=== PATIENT | female | born 1950 | race Caucasian/White ===

== ENCOUNTER 2016-12-19 11:57 | Emergency (ER) | payer OTHER ==
[2016-12-19] MEDS ORDERED: OXYCODONE-ACETAMINOPHEN 5-325 MG TABLET PO ONE (12:13)
--- NOTE | 2016-12-19 12:46 | ER Document Report ---
HPI - HPI Patient complains to provider of: ankle injury Onset: Just prior to arrival Onset/Duration: Sudden Quality of pain: Sharp Pain Level: 5 Context: Patient was stepping off of her porch and rolled her left ankle. Patient complains of lateral ankle pain, swelling and difficulty with ambulation. Associated Symptoms: Other Exacerbated by: Standing, Movement, Walking Relieved by: Denies Similar symptoms previously: No Recently seen / treated by doctor: No - ROS ROS below otherwise negative: Yes Systems Reviewed and Negative: Yes All other systems reviewed and negative - CONSTITUTIONAL Constitutional: DENIES: Fever, Chills - NEURO Neurology: DENIES: Weakness - GASTROINTESTINAL Gastrointestinal: DENIES: Nausea - REPRODUCTIVE Reproductive: DENIES: : - MUSCULOSKELETAL Musculoskeletal: REPORTS: Extremity pain, Swelling - DERM Skin Color: Normal Past Medical History - General Information source: Patient - Social History Smoking Status: Never Smoker Chew tobacco use (# tins/day): No Frequency of alcohol use: None Drug Abuse: None Occupation: none Lives with: Spouse/Significant other Family History: CAD Patient has suicidal ideation: No Patient has homicidal ideation: No - Past Medical History Cardiac Medical History: Reports: Hx Hypercholesterolemia Neurological Medical History: Reports: Hx Migraine Renal/ Medical History: Denies: Hx Peritoneal Dialysis GI Medical History: Reports: Hx Gastroesophageal Reflux Disease Psychiatric Medical History: Reports: Hx Anxiety, Hx Depression Past Surgical History: Reports: Hx Hysterectomy, Hx Orthopedic Surgery - R knee - Immunizations Immunizations up to date: No Hx Diphtheria, Pertussis, Tetanus Vaccination: - unknown Vertical Provider Document - CONSTITUTIONAL Agree With Documented VS: Yes Exam Limitations: No Limitations General Appearance: WD/WN, No Apparent Distress - INFECTION CONTROL TRAVEL OUTSIDE OF THE [place] IN LAST 30 DAYS: No - HEENT HEENT: Atraumatic, Normocephalic - NECK Neck: Normal Inspection - RESPIRATORY Respiratory: Breath Sounds Normal, No Respiratory Distress O2 Sat by Pulse Oximetry: 97 - CARDIOVASCULAR Cardiovascular: Regular Rate, Regular Rhythm Pulses: Normal: Dorsalis pedis - MUSCULOSKELETAL/EXTREMETIES Musculoskeletal/Extremeties: MAEW, Tender - Left ankle tenderness over lateral malleolar area with 1+ edema, Edema, Eccymosis - NEURO Level of Consciousness: Awake, Alert, Appropriate Motor/Sensory: No Motor Deficit - DERM Integumentary: Warm, Dry Course - Vital Signs Vital signs: Temp Pulse Resp BP Pulse Ox 98.4 F 96 16 116/93 H 97 12/19/16 11:59 12/19/16 11:59 12/19/16 11:59 12/19/16 11:59 12/19/16 11:59 - Diagnostic Test Radiology reviewed: Pending, Image reviewed Procedures - Immobilization Left Ankle Pre-Proc Neuro Vasc Exam: Normal Immobilizer type: Posterior ankle Performed by: PCT Post-Proc Neuro Vasc Exam: Normal Alignment checked and good: Yes Discharge - Discharge Clinical Impression: Fracture of distal fibula Qualifiers: Encounter type: initial encounter Fracture type: closed Fracture morphology: unspecified fracture morphology Laterality: left Qualified Code(s): S82.832A - Other fracture of upper and lower end of left fibula, initial encounter for closed fracture Condition: Stable Disposition: HOME, SELF-CARE Instructions: Ice & Elevation ([facility]), Oral Narcotic Medication ([facility]), Use of Crutches ([facility]), Fracture of Distal Fibula ([facility]) Additional Instructions: Return immediately for any new or worsening symptoms Followup with your orthopedic care provider, call Wednesday to make a followup appointment Prescriptions: Oxycodone HCl/Acetaminophen [Percocet 5-325 mg Tablet] 1 tab PO ASDIR PRN #15 tablet PRN Reason: Referrals: DION VELEZ PA-C [Primary Care Provider] - Follow up as needed GUERO PRABHAKAR MD [ACTIVE STAFF] - 12/21/16
--- NOTE | 2016-12-19 13:20 | RADIOLOGY REPORT (SQ) ---
EXAM DESCRIPTION: ANKLE LEFT COMPLETE COMPLETED DATE/TIME: 12/19/2016 12:55 pm REASON FOR STUDY: rolled ankle, lateral ankle pain COMPARISON: None. NUMBER OF VIEWS: Three views. TECHNIQUE: AP, lateral, and oblique radiographic images acquired of the left ankle. LIMITATIONS: None. FINDINGS: MINERALIZATION: Normal. BONES: A transverse linear lucency is identified at the level of the distal fibula consistent with a nondisplaced fracture line. No other evidence for fracture is seen. JOINTS: No effusions. SOFT TISSUES: There is associated soft tissue swelling. OTHER: No other significant finding. IMPRESSION: Transverse fracture of the distal fibula. No other evidence for fracture is seen. Ther e is associated soft tissue swelling. TECHNICAL DOCUMENTATION: JOB ID: [id number] [employer]- All Rights Reserved
[2016-12-19 13:36] VITALS: BP 108/72
== END 2016-12-19 13:36 | disposition home or self-care (01) ==
LOC: ER 11:57
PROC: 2W3QX1Z Immobilization of Right Lower Leg using Splint (ICD-10-PCS; principal; 2016-12-19)
DX: S82.832A Other fracture of upper and lower end of left fibula, initial encounter for closed fracture (principal); X50.0XXA Overexertion from strenuous movement or load, initial encounter
CPT/HCPCS: 99283

== ENCOUNTER 2017-05-14 09:02 | Emergency (ER) | payer MEDICARE, OTHER ==
--- NOTE | 2017-05-14 09:47 | ER Document Report ---
ED Medical Screen (RME) - General Chief Complaint: General Weakness Stated Complaint: NAUSEA,WEAKNESS Mode of Arrival: Ambulatory Information source: Patient Notes: 67 year old female with history of UTIs, hyperlipidemia, and GERD presents to the ED complaining of nausea which is exacerbated with eating and generalized malaise that started 1 week ago. Patient is additionally complaining of burning with urination. Patient denies chest pain, abdominal discomfort, cough, congestion, vomiting, diarrhea, or any black or tarry stool. Patient has been told that she has a 'borderline thyroid'. Patient has an appointment with her primary care provider on Wednesday. TRAVEL OUTSIDE OF THE [place] IN LAST 30 DAYS: No - HPI Patient complains to provider of: Nausea and generalized malaise Onset: Other - 1 week ago Onset/Duration: Sudden Associated Symptoms: Other - see notes above - Related Data Smoking: Non-smoker Allergies/Adverse Reactions: No Known Allergies Allergy (Verified 05/14/17 09:04) Past Medical History - General Information source: Patient - Social History Cigarette use (# per day): No Frequency of alcohol use: Rare Drug Abuse: None - Past Medical History Cardiac Medical History: Reports: Hx Hypercholesterolemia Neurological Medical History: Reports: Hx Migraine Renal/ Medical History: Denies: Hx Peritoneal Dialysis GI Medical History: Reports: Hx Gastroesophageal Reflux Disease Psychiatric Medical History: Reports: Hx Anxiety, Hx Depression Past Surgical History: Reports: Hx Hysterectomy, Hx Orthopedic Surgery - R knee - Immunizations Immunizations up to date: No Hx Diphtheria, Pertussis, Tetanus Vaccination: - unknown Review of Systems - Review of Systems Constitutional: See HPI, Malaise EENT: No symptoms reported Cardiovascular: No symptoms reported. denies: Chest pain Respiratory: No symptoms reported. denies: Cough Gastrointestinal: See HPI, Nausea. denies: Abdominal pain, Diarrhea, Vomiting Genitourinary: See HPI, Burning Female Genitourinary: No symptoms reported Musculoskeletal: No symptoms reported Skin: No symptoms reported Hematologic/Lymphatic: No symptoms reported Neurological/Psychological: No symptoms reported -: Yes All other systems reviewed and negative Physical Exam - Vital signs Vitals: Temp Pulse Resp BP Pulse Ox 98.0 F 68 18 107/57 L 97 05/14/17 09:07 05/14/17 09:07 05/14/17 09:07 05/14/17 09:07 05/14/17 09:07 - General General appearance: Alert In distress: None - Respiratory Respiratory status: No respiratory distress Breath sounds: Normal - Cardiovascular Rhythm: Regular Heart sounds: Normal auscultation - Psychological Associated symptoms: Normal affect, Normal mood Course - Vital Signs Vital signs: Temp Pulse Resp BP Pulse Ox 98.0 F 68 18 107/57 L 97 05/14/17 09:07 05/14/17 09:07 05/14/17 09:07 05/14/17 09:07 05/14/17 09:07 Scribe Documentation - Scribe Written by Colton:: Colton Shoemaker, 05/14/2017 0950 acting as scribe for :: Ren
[2017-05-14 10:08] LABS: ABSOLUTE BASOPHILS # (AUTO) 0.1 10^3/uL (0.0-0.2); ABSOLUTE EOSINOPHILS # (AUTO) 0.1 10^3/uL (0.0-0.6); ABSOLUTE LYMPHOCYTES (AUTO) 1.5 10^3/uL (0.5-4.7); ABSOLUTE MONOCYTES (AUTO) 0.6 10^3/uL (0.1-1.4); HEMATOCRIT 35.7 % (36.0-47.0); HEMOGLOBIN 11.9 g/dL (12.0-15.5); LYMPHOCYTES % (AUTO) 24.4 % (13-45); MEAN CORPUSCULAR HEMOGLOBIN 27.8 pg (27.0-33.4); MEAN CORPUSCULAR HGB CONC 33.3 g/dL (32.0-36.0); MEAN CORPUSCULAR VOLUME 84 fl (80-97); MONOCYTES % (AUTO) 9.9 % (3-13); RED BLOOD COUNT 4.28 10^6/uL (3.72-5.28); RED CELL DISTRIBUTION WIDTH 14.1 % (11.5-14.0); SEGMENTED NEUTROPHILS % (AUTO) 63.7 % (42-78); WHITE BLOOD COUNT 6.3 10^3/uL (4.0-10.5)
[2017-05-14 10:11] LABS: APPEARANCE,URINE SLIGHTLY-CLOUDY; BILIRUBIN,URINE NEGATIVE (NEGATIVE); GLUCOSE, URINE NEGATIVE (NEGATIVE); KETONES,URINE NEGATIVE (NEGATIVE); LEUKOCYTE ESTERASE,URINE TRACE (NEGATIVE); NITRITE,URINE NEGATIVE (NEGATIVE); PROTEIN,URINE NEGATIVE (NEGATIVE); URINE SPECIFIC GRAVITY 1.016; UROBILINOGEN,URINE NEGATIVE mg/dL (<2.0)
[2017-05-14 10:15] LABS: BACTERIA,URINE TRACE /HPF; WBC,URINE 0-1 /HPF
[2017-05-14 10:28] LABS: ALANINE AMINOTRANSFERASE 26 U/L (9-52); ALBUMIN 3.6 g/dL (3.5-5.0); ALKALINE PHOSPHATASE 56 U/L (38-126); ANION GAP 9 (5-19); ASPARTATE AMINO TRANSFERASE 22 U/L (14-36); BILIRUBIN,DIRECT 0.3 mg/dL (0.0-0.4); BILIRUBIN,TOTAL 0.7 mg/dL (0.2-1.3); BLOOD UREA NITROGEN 6 mg/dL (7-20); CALCIUM 9.3 mg/dL (8.4-10.2); CARBON DIOXIDE 31 mmol/L (22-30); CHLORIDE 104 mmol/L (98-107); CREATININE RESULT 0.79 mg/dL (0.52-1.25); GLUCOSE 111 mg/dL (75-110); MAGNESIUM 1.6 mg/dL (1.6-2.3); SODIUM 144.3 mmol/L (137-145)
[2017-05-14] MEDS ORDERED: NORMAL SALINE 500 ML IV ONE (12:50)
[2017-05-14] MEDS ORDERED: MECLIZINE HCL 25 MG TABLET PO ONE (12:50)
[2017-05-14] MEDS ORDERED: NORMAL SALINE 1000 ML 1,000 ML IV ONE (12:53)
--- NOTE | 2017-05-14 13:17 | EKG REPORT ---
SEVERITY:- BORDERLINE ECG - SINUS RHYTHM BORDERLINE PROLONGED QT INTERVAL NONSPECIFIC ST-T CHANGES- INFERIOR LEADS : Confirmed by: Sam Maynard MD 14-May-2017 13:15:51
[2017-05-14] MEDS ORDERED: FLUCONAZOLE 100 MG TABLET PO ONE (13:19)
--- NOTE | 2017-05-14 13:21 | RADIOLOGY REPORT (SQ) ---
EXAM DESCRIPTION: CT HEAD WITHOUT COMPLETED DATE/TIME: 05/14/2017 1:10 pm REASON FOR STUDY: dizzy COMPARISON: MRI dated 07/23/2014. TECHNIQUE: Axial images acquired through the brain without intravenous contrast. Images reviewed wi th bone, brain and subdural windows. Images stored on PACS. All CT scanners at this facility use dose modulation, iterative reconstruction, and/or weight based d osing when appropriate to reduce radiation dose to as low as reasonably achievable (ALARA). [facility]: Dose Right [facility]: CareDose [facility]: Dose Right [facility]: Teradose 4D [facility]: [employer] RADIATION DOSE: mGy. LIMITATIONS: None. FINDINGS: VENTRICLES: Normal size and contour. CEREBRUM: No masses. No hemorrhage. No midline shift. No evidence for acute infarction. Normal gra y/white matter differentiation. No areas of low density in the white matter. CEREBELLUM: No masses. No hemorrhage. No alteration of density. No evidence for acute infarction. EXTRAAXIAL SPACES: No fluid collections. No masses. ORBITS AND GLOBE: No intra- or extraconal masses. Normal contour of globe without masses. CALVARIUM: No fracture. PARANASAL SINUSES: No fluid or mucosal thickening. SOFT TISSUES: No mass or hematoma. OTHER: No other significant finding. IMPRESSION: NORMAL BRAIN CT WITHOUT CONTRAST. EVIDENCE OF ACUTE STROKE: NO. COMMENT: Quality ID # [id number]: Final reports with documentation of one or more dose reduction techniques (e.g., Automated exposure control, adjustment of the mA and/or kV according to patient size, use of iterative reconstruction technique) TECHNICAL DOCUMENTATION: JOB ID: [id number] [employer]- All Rights Reserved
--- NOTE | 2017-05-14 14:19 | ER Document Report ---
ED General - General Chief Complaint: General Weakness Stated Complaint: NAUSEA,WEAKNESS Time Seen by Provider: 05/14/17 09:21 Mode of Arrival: Ambulatory Information source: Patient, Relative Notes: Patient is a 67 year old white female who comes to ER with her complaining of generalized weakness and dizziness. She states this has been going on for a week and getting worse.She is currently being treated for a UTI by her PCP Dr Hampton. Dillonwe also states she has been diagnosed with " [place] Hypothyroidism ". She continues to say that she becomes very dizzy going from Laying down to sitting up to standing. She says that when she changes positions the room spins and she becomes nauseated. She currently denies any recent URI symptoms. She denies chest pain or shortness of breath. Her interjects that she has not felt well since starting phenteramine for weight loss. She has been on med for about 2 months. TRAVEL OUTSIDE OF THE [place] IN LAST 30 DAYS: No - HPI Patient complains to provider of: Lightheadedness and dizziness. Weakness and fatigue. Onset: Other - One week with past 2 days worse. Severity: Moderate Pain Level: 3 Associated symptoms: Nausea, Weakness. denies: None, Allergy/hay fever, Body/ muscle aches, Chest pain, Chills, Nonproductive cough, Productive cough, Diarrhea, Drooling, Earache, Fever, Headache, Hoarseness, Hurts to breath, Leg swelling, Vomiting, Rhinnorhea, Sinus pain/drainage, Shortness of breath, Slow to respond, Sore throat, Sweating, Other Exacerbated by: Movement, Other - position Relieved by: Remaining still Similar symptoms previously: No Recently seen / treated by doctor: Yes - Related Data Allergies/Adverse Reactions: No Known Allergies Allergy (Verified 05/14/17 09:04) Home Medications: Current Home Medications Atorvastatin Calcium [Lipitor 10 mg Tablet] 1 tab PO DAILY 05/14/17 [History] Paroxetine HCl [Paxil] 1 tab PO DAILY 05/14/17 [History] Past Medical History - General Information source: Patient, Relative - Social History Smoking Status: Never Smoker Cigarette use (# per day): No Chew tobacco use (# tins/day): No Smoking Education Provided: No Frequency of alcohol use: Rare Drug Abuse: None Lives with: Family Family History: Reviewed & Not Pertinent, CAD Patient has suicidal ideation: No Patient has homicidal ideation: No - Past Medical History Cardiac Medical History: Reports: Hx Hypercholesterolemia Neurological Medical History: Reports: Hx Migraine Renal/ Medical History: Denies: Hx Peritoneal Dialysis GI Medical History: Reports: Hx Gastroesophageal Reflux Disease Psychiatric Medical History: Reports: Hx Anxiety, Hx Depression Past Surgical History: Reports: Hx Hysterectomy, Hx Orthopedic Surgery - R knee - Immunizations Immunizations up to date: No Hx Diphtheria, Pertussis, Tetanus Vaccination: - unknown Review of Systems - Review of Systems Constitutional: Malaise, Weakness EENT: No symptoms reported Cardiovascular: No symptoms reported Respiratory: No symptoms reported Gastrointestinal: Nausea Genitourinary: No symptoms reported Female Genitourinary: No symptoms reported Musculoskeletal: No symptoms reported Skin: No symptoms reported Hematologic/Lymphatic: No symptoms reported Neurological/Psychological: Weakness -: Yes All other systems reviewed and negative Physical Exam - Vital signs Vitals: Temp Pulse Resp BP Pulse Ox 98.0 F 68 18 107/57 L 97 05/14/17 09:07 05/14/17 09:07 05/14/17 09:07 05/14/17 09:07 05/14/17 09:07 Interpretation: Hypotensive - General General appearance: Appears well - HEENT Head: Normocephalic, Atraumatic Eyes: Other - Patient was layed supine on cot. Laid head in hands and I rotated head left right and up 3 times each time watching the eyes. Patient on second manover showed moderate horizontal faciculation bilaterally. When sat up after 3rd rotatiion patient tilted to the right and became very nauseated. Conjunctiva: Normal Extraocular movements intact: Yes Pupils: PERRL Fundascopic: Normal Visual maza normal: Yes Ears: Normal External canal: Normal Tympanic membrane: Normal Sinus: Normal Nasal: Normal Mouth/Lips: Normal Mucous membranes: Moist Pharynx: Normal Neck: Normal - Respiratory Respiratory status: No respiratory distress Chest status: Nontender Breath sounds: Normal. No: Decreased air movement, Nonproductive cough, Productive cough, Rales, Rhonchi, Stridor, Wheezing, Other Chest palpation: Normal - Cardiovascular Rhythm: Regular Heart sounds: Normal auscultation Murmur: No - Abdominal Inspection: Normal Distension: No distension Bowel sounds: Normal Tenderness: Nontender Organomegaly: No organomegaly - Neurological Neuro grossly intact: Yes Cognition: Normal Orientation: AAOx4 [place] Coma Scale Eye Opening: Spontaneous [place] Coma Scale Verbal: Oriented [place] Coma Scale Motor: Obeys Commands [place] Coma Scale Total: 15 Speech: Normal Cranial nerves: Normal Cerebellar coordination: Normal, Other - Neuro check normal Additional motor exam normals: Equal spine surgeon Sensory: Normal - Skin Skin Temperature: Warm Skin Moisture: Dry Skin Color: Normal, [place] Course - Vital Signs Vital signs: Temp Pulse Resp BP Pulse Ox 98.0 F 71 16 123/67 100 05/14/17 09:07 05/14/17 14:39 05/14/17 14:39 05/14/17 14:39 05/14/17 14:39 - Laboratory Result Diagrams: 05/14/17 09:45 05/14/17 09:45 Laboratory results interpreted by me: 05/14/17 05/14/17 05/14/17 09:45 09:45 09:45 Hgb 11.9 L Hct 35.7 L RDW 14.1 H Carbon Dioxide 31 H BUN 6 L Glucose 111 H Total Protein 6.0 L TSH 5.52 H Ur Leukocyte Esterase 05/14/17 09:45 Hgb Hct RDW Carbon Dioxide BUN Glucose Total Protein TSH Ur Leukocyte Esterase TRACE H - Diagnostic Test Radiology reviewed: Reports reviewed - Normal CT head - Transfer of Care Notes: 05/14/17 21:09 Patient received a liter of fluid and responded well. Orthostatic BP normal. and patient requestion DC and given the findings Vertigo is primary diagnosis. She also has slight elevation in TSH. Will treat with Meclzine and small steroid taper. For inner ear complaints. Patient will follow up with Dr Hampton first of the week. On DC she appeared improved. Discharge - Discharge Clinical Impression: Vertigo Hypothyroid Qualifiers: Hypothyroidism type: unspecified Qualified Code(s): E03.9 - Hypothyroidism, unspecified Condition: Good Disposition: HOME, SELF-CARE Instructions: Hypothyroidism ([facility]), Vertigo ([facility]) Additional Instructions: Home and rest. As we discussed treating you for the vertigo symptoms with the Antivert/meclizine. I am also placing you on a little bit of a steroid for a few days to see if this helps alleviate that in her ear count of problem. Also placing you on an antihistamine that I hope will help dry everything up. Continue with your current medications and follow-up with your primary the first of the week. Should you have any concerns or problems return to ER for a recheck. Currently as we discussed her thyroid numbers are slightly out of control you need further workup with this and more in-depth studies that we do not do out of the emergency room. At this time we will not start treating this given the fact that you need further workup. This can be 1 of the things contributing to your fatigue. Your urine is clean so do not take anymore antibiotics. I have given you a Diflucan pill in-house and that should take care of your yeast infection from use of the antibiotics. Again she had any concerns or problems return to ER for recheck. Prescriptions: Meclizine HCl 25 mg PO TID #30 tablet Methylprednisolone [Medrol Dosepack (4 mg/Tab) 21 Tab/Dosepak] 4 mg PO ASDIR PRN #21 tab.ds.pk PRN Reason: Referrals: COLEMAN HAMPTON MD [ACTIVE STAFF] - Follow up as needed
[2017-05-14 14:46] VITALS: BP 123/67
== END 2017-05-14 14:46 | disposition home or self-care (01) ==
LOC: ER 09:02
DX: R42 Dizziness and giddiness (principal); R53.1 Weakness; R11.0 Nausea; E03.9 Hypothyroidism, unspecified
CPT/HCPCS: 93005; 99285; 96360; 36415; 83735; 84443; 85025; 80053; 81001; 84484; 70450; 93010; A9270 ×2; J7030

== ENCOUNTER → 2017-08-19 | Outpatient (CLI) | payer MEDICARE, OTHER ==
--- NOTE | 2017-08-19 14:31 | RADIOLOGY REPORT (SQ) ---
EXAM DESCRIPTION: CT ABD/PELVIS WITH IV ORAL COMPLETED DATE/TIME: 08/19/2017 1:40 pm REASON FOR STUDY: EPIGATRIC PAIN R10.13 EPIGASTRIC PAIN COMPARISON: CT dated 12/26/2015. MRI dated 02/26/2016. TECHNIQUE: CT scan of the abdomen and pelvis performed using helical scanning technique with dynamic intravenous contrast injection. No oral contrast. Images reviewed with lung, soft tissue, and bone windows. Reconstructed coronal and sagittal MPR images reviewed. Delayed images for evaluation of the urinary system also acquired. All images stored on PACS. All CT scanners at this facility use dose modulation, iterative reconstruction, and/or weight based d osing when appropriate to reduce radiation dose to as low as reasonably achievable (ALARA). [facility]: Dose Right [facility]: CareDose [facility]: Dose Right [facility]: Teradose 4D [facility]: [employer] CONTRAST TYPE AND DOSE: contrast/concentration: Isovue 370.00 mg/ml; Total Contrast Delivered: 80.0 ml; Total Saline Delivered: 68.0 ml RENAL FUNCTION: Creatinine 0.8. RADIATION DOSE: CT Rad equipment meets quality standard of care and radiation dose reduction techniq ues were employed. CTDIvol: 6.4 - 7.5 mGy. DLP: 732 mGy-cm.. LIMITATIONS: None. FINDINGS: LOWER CHEST: No significant findings. No nodules or infiltrates. LIVER: Normal size. Diffuse fatty infiltration. No masses. No dilated ducts. SPLEEN: Normal size. No focal lesions. PANCREAS: Small fatty lesion in the body, unchanged. No significant calcifications. No adjacent infl ammation or peripancreatic fluid collections. Pancreatic duct not dilated. GALLBLADDER: No identified stones by CT criteria. No inflammatory changes to suggest cholecystitis. ADRENAL GLANDS: No significant masses or asymmetry. RIGHT KIDNEY AND URETER: No solid masses. No significant calcifications. No hydronephrosis or hyd roureter. LEFT KIDNEY AND URETER: No solid masses. No significant calcifications. No hydronephrosis or hydr oureter. AORTA AND VESSELS: No aneurysm. No dissection. Renal arteries, SMA, celiac without stenosis. RETROPERITONEUM: No retroperitoneal adenopathy, hemorrhage or masses. BOWEL AND PERITONEAL CAVITY: No masses or inflammatory changes. Stable duodenal diverticulum. No fr ee fluid or peritoneal masses. APPENDIX: Normal. PELVIS: No mass. No free fluid. Normal bladder. ABDOMINAL WALL: No masses. No hernias. BONES: No significant or acute findings. OTHER: No other significant finding. IMPRESSION: 1. STABLE SMALL FATTY LESION IN THE PANCREAS, MOST LIKELY A LIPOMA. 2. STABLE DUODENAL DIVERTICULUM. 3. DIFFUSE FATTY INFILTRATION OF THE LIVER. 4. NO OTHER SIGNIFICANT OR ACUTE FINDING IN THE ABDOMEN OR PELVIS ON CT SCAN WITH IV CONTRAST. TECHNICAL DOCUMENTATION: JOB ID: [id number] Quality ID # [id number]: Final reports with documentation of one or more dose reduction techniques (e.g., Au tomated exposure control, adjustment of the mA and/or kV according to patient size, use of iterative reconstruction technique) 2010 [employer]- All Rights Reserved Reading location - IP/workstation name: [email or web address]
== END ==
LOC: RAD 12:49
PROVIDERS: ATTEND Internal Medicine Gastroenterology
DX: R10.13 Epigastric pain (principal); K57.10 Diverticulosis of small intestine without perforation or abscess without bleeding; K76.0 Fatty (change of) liver, not elsewhere classified
CPT/HCPCS: 74177; 82565

== ENCOUNTER → 2017-12-07 | Outpatient (CLI) | payer MEDICARE, OTHER ==
--- NOTE | 2017-12-07 13:58 | RADIOLOGY REPORT (SQ) ---
EXAM DESCRIPTION: HAND RIGHT 3 VIEWS COMPLETED DATE/TIME: 12/07/2017 11:24 am REASON FOR STUDY: PAIN IN RIGHT HAND PAIN IN RIGHT HAND chronic pain no injury. COMPARISON: None. EXAM PARAMETERS: NUMBER OF VIEWS: Three views. TECHNIQUE: AP, lateral and oblique radiographic images acquired of the right hand. LIMITATIONS: None. FINDINGS: MINERALIZATION: Normal. BONES: No acute fracture or dislocation. No worrisome bone lesions. No significant osteophytes. JOINTS: Mild periarticular osteopenia. SOFT TISSUES: No swelling. No calcifications. OTHER: No other significant finding. IMPRESSION: Mild periarticular osteopenia. No erosive changes. TECHNICAL DOCUMENTATION: JOB ID: [id number] [employer]- All Rights Reserved Reading location - IP/workstation name: [email or web address]
== END ==
LOC: RAD 11:02
PROVIDERS: ATTEND Nurse Practitioner Primary Care
DX: G89.29 Other chronic pain (principal); M79.641 Pain in right hand

== ENCOUNTER → 2018-03-12 | Outpatient (CLI) | payer MEDICARE, OTHER ==
--- NOTE | 2018-03-12 10:37 | RADIOLOGY REPORT (SQ) ---
EXAM DESCRIPTION: MRI PELVIS WITHOUT COMPLETED DATE/TIME: 03/12/2018 10:09 am REASON FOR STUDY: ABNORMAL XRAY SUSPICION FOR SERONEGATIVE SPONDYLOARTHROPATHY M54.5 LOW BACK PAIN COMPARISON: None. TECHNIQUE: Multiplanar imaging of the SI joints to include fat and fluid sensitive sequences. LIMITATIONS: None. FINDINGS: BONE MARROW: Symmetric appearance of the bilateral sacroiliac joints without suggestion of significant marrow edema, ankylosis or erosions. No bulky osteophytes. No fluid in the joints. Co rrelation with CT study from August reveals some minimal sclerosis and narrowing along the SI joints. SOFT TISSUES: No evidence of mass or edema or drainable fluid collection. OTHER: No other significant finding. IMPRESSION: MRI appearance of the SI joints is relatively unremarkable. TECHNICAL DOCUMENTATION: JOB ID: [id number] [employer]- All Rights Reserved Reading location - IP/workstation name: [email or web address]
== END ==
LOC: RAD 08:51
PROVIDERS: ATTEND Nurse Practitioner Family
DX: M54.5 Low back pain (principal)
CPT/HCPCS: 72195

== ENCOUNTER → 2018-09-06 | Day surgery (SDC) | payer MEDICARE, OTHER ==
[~2018-09-06] MED LIST: BUPIVACAINE HCL 0.5 % INJ/PF 30 ML SDV ONE; LIDOCAINE 1% INJ-PF (10 MG/ML) 30 ML SDV ONE; LIDOCAINE 2% INJ (20 MG/ML) 20 ML MDV ONE; METHYLPREDNISOLONE ACETATE INJ 40 MG/1 ML ML ONE
--- NOTE | 2018-09-06 13:42 | Operative Report ---
PREOPERATIVE DIAGNOSIS: Lumbar Spondylosis POSTOPERATIVE DIAGNOSIS: Lumbar Spondylosis PROCEDURE: Radiofrequency Ablation of medial branches - RT L3 L4 / LT L3 L4 DATE OF PROCEDURE: 09/06/2018 ANESTHESIA: Local COMPLICATIONS: None CONSENT: A full description of the procedure was provided including benefits as well as possible complications. All questions were answered and informed consent was given and signed. ASA guidelines for fasting were verified prior to sedation. PROCEDURE IN DETAIL The patient was brought into the fluoroscopy suite and positioned into the prone position on the fluoroscopy table and allowed to adjust to a position of comfort. A grounding pad was placed on the left thigh. The lumbar region was widely prepped with a chloraprep solution, allowed to air dry and draped in standard sterile surgical fashion. Local anesthesia was provided by 1 mL of 1 % again delivered with a 25 g needle. A 17g 75mm radiofrequency introducer needle was placed to the planned anatomic targets guided with intermittent fluoroscopy with a perpendicular approach to terminally place at the junction of the superior articular process and the transverse process of the right L4 and right L5. The stylets were removed and radiofrequency probes with a 4mm active tip were then inserted. Needle tip position of the probes was verified in the AP, oblique, and lateral views. At each site, the medial branch nerve was stimulated at 2 Hz to a maximum 1-2 volts determined to finalize safe needle and electrode placement. The patient was awake and responsive during this portion of the procedure. Each target was anesthetized with 1-2 mL of 2 % lidocaine for anesthesia for lesioning and then each target was lesioned at 80 degrees Celsius for 2 minutes and 30 seconds. Tissue impedences were noted to be between 250 and 500 Ohms. The procedure was then performed in the exact same manner at the same levels on the left. Once completed, a solution of sensorcain and depomedrol was instilled at all 4 sites. Electrodes and needles were then removed and bandages placed over the needle placement sites, the patient then returned to the supine position on a stretcher and transported to the recovery room without hemodynamic, neurologic, or allergic reactions. Fluoroscopic images were printed for hard copy recording and digitally archived. POST PROCEDURE EVALUATION: The patient was comfortable in the recovery room. The patient is aware that pain may worsen before remitting and 4 6 weeks may be required prior to the onset of pain relief. IMPRESSION: 1. Technically successful bilateral L3 L4 medial branch radiofrequency neurotomy for denervation on the bilateral without complication. 2. RTC in 6 weeks. 3. Estimated Blood Loss: 3 cc 4. Fluoroscopy time: See nursing record seconds
== END ==
LOC: RAD 12:36
PROVIDERS: ATTEND Student in an Organized Health Care Education/Training Program
DX: M47.816 Spondylosis without myelopathy or radiculopathy, lumbar region (principal)
CPT/HCPCS: 64635; 64636; J3490 ×3; J1020

== ENCOUNTER 2019-02-28 10:48 | Observation (INO) | payer MEDICARE, OTHER ==
[2019-02-28] MEDS ORDERED: ASPIRIN 81 MG TABLET, CHEWABLE PO ONE (11:36)
[2019-02-28 11:47] LABS: ABSOLUTE BASOPHILS # (AUTO) 0.1 10^3/uL (0.0-0.2); ABSOLUTE EOSINOPHILS # (AUTO) 0.1 10^3/uL (0.0-0.6); ABSOLUTE MONOCYTES (AUTO) 0.6 10^3/uL (0.1-1.4); ABSOLUTE NEUT (AUTO) 3.1 10^3/uL (1.7-8.2); BASOPHILS % (AUTO) 2.2 % (0-2); EOSINOPHILS % (AUTO) 2.4 % (0-6); HEMATOCRIT 38.3 % (36.0-47.0); HEMOGLOBIN 12.6 g/dL (12.0-15.5); LYMPHOCYTES % (AUTO) 33.2 % (13-45); MEAN CORPUSCULAR HEMOGLOBIN 28.7 pg (27.0-33.4); MEAN CORPUSCULAR HGB CONC 32.8 g/dL (32.0-36.0); MEAN CORPUSCULAR VOLUME 88 fl (80-97); MONOCYTES % (AUTO) 9.3 % (3-13); PLATELET COUNT 205 10^3/uL (150-450); RED BLOOD COUNT 4.37 10^6/uL (3.72-5.28); RED CELL DISTRIBUTION WIDTH 15.7 % (11.5-14.0); SEGMENTED NEUTROPHILS % (AUTO) 52.9 % (42-78); TOTAL CELLS COUNTED % (AUTO) 100 %; WHITE BLOOD COUNT 5.9 10^3/uL (4.0-10.5)
[2019-02-28 12:07] LABS: ALBUMIN 4.1 g/dL (3.5-5.0); ALKALINE PHOSPHATASE 87 U/L (38-126); ANION GAP 7 (5-19); ASPARTATE AMINO TRANSFERASE 59 U/L (14-36); BILIRUBIN,DIRECT 0.1 mg/dL (0.0-0.4); BILIRUBIN,TOTAL 0.5 mg/dL (0.2-1.3); BLOOD UREA NITROGEN 11 mg/dL (7-20); CALCIUM 9.3 mg/dL (8.4-10.2); CARBON DIOXIDE 27 mmol/L (22-30); CHLORIDE 108 mmol/L (98-107); CREATINE KINASE 66 U/L (30-135); GLUCOSE 93 mg/dL (75-110); POTASSIUM 3.9 mmol/L (3.6-5.0); TOTAL PROTEIN 6.8 g/dL (6.3-8.2)
[2019-02-28 12:21] LABS: CREATINE KINASE MB 0.5 ng/mL (<4.55)
[2019-02-28 12:28] LABS: TROPONIN I 0.09 ng/mL
[2019-02-28 13:10] LABS: FREE T4 (FREE THYROXINE) 1.07 ng/dL (0.78-2.19)
--- NOTE | 2019-02-28 13:10 | RADIOLOGY REPORT (SQ) ---
EXAM DESCRIPTION: CHEST 2 VIEWS COMPLETED DATE/TIME: 02/28/2019 1:01 pm REASON FOR STUDY: chest pain COMPARISON: 07/10/2007 EXAM PARAMETERS: NUMBER OF VIEWS: two views TECHNIQUE: Digital Frontal and Lateral radiographic views of the chest acquired. RADIATION DOSE: NA LIMITATIONS: none FINDINGS: LUNGS AND PLEURA: No opacities, masses or pneumothorax. No pleural effusion. MEDIASTINUM AND HILAR STRUCTURES: No masses or contour abnormalities. HEART AND VASCULAR STRUCTURES: Heart normal size. No evidence for failure. BONES: No acute findings. HARDWARE: None in the chest. OTHER: No other significant finding. IMPRESSION: NO ACUTE RADIOGRAPHIC FINDING IN THE CHEST. TECHNICAL DOCUMENTATION: JOB ID: [id number] [employer]- All Rights Reserved Reading location - IP/workstation name: [email or web address]
[2019-02-28 13:24] LABS: THYROID STIMULATING HORMONE 1.53 uIU/mL (0.47-4.68)
--- NOTE | 2019-02-28 14:28 | EKG REPORT ---
SEVERITY:- ABNORMAL ECG - SINUS ARRHYTHMIA, RATE 55-77 LEFT VENTRICULAR HYPERTROPHY : Confirmed by: Sam Maynard MD 28-Feb-2019 14:27:45
[2019-02-28] MEDS ORDERED: REGADENOSON INJ 0.4 MG/5 ML DISP.SYRIN IV ONE (14:30)
--- NOTE | 2019-02-28 14:52 | ER Document Report ---
ED Cardiac - General Chief Complaint: Chest Pain Stated Complaint: DIZZINESS Time Seen by Provider: 02/28/19 11:53 Primary Care Provider: DION VELEZ PA-C [Primary Care Provider] - Follow up as needed Notes: 68-year-old female presents to the ER complaining of chest discomfort and a funny feeling all over. The patient stated she slurred her speech for a few minutes but that has resolved she felt tingly all over. She complains some mild chest discomfort that is went away she felt short of breath. Patient is not a very good historian and cannot really localize she does states she feels as if something is wrong. She was concerned she may have been having a stroke she denies any anxiety related issues. Stated the chest discomfort was just heaviness and then she had tingling all over. Think she did made it better or worse she is come to the ER to be evaluated denies fever chills cough or sore throat TRAVEL OUTSIDE OF THE [place] IN LAST 30 DAYS: No - Related Data Allergies/Adverse Reactions: No Known Allergies Allergy (Verified 02/28/19 10:54) Past Medical History - Social History Smoking Status: Unknown if Ever Smoked Family History: Reviewed & Not Pertinent, CAD Patient has suicidal ideation: No Patient has homicidal ideation: No - Past Medical History Cardiac Medical History: Reports: Hx Hypercholesterolemia Neurological Medical History: Reports: Hx Migraine Renal/ Medical History: Denies: Hx Peritoneal Dialysis GI Medical History: Reports: Hx Gastroesophageal Reflux Disease Psychiatric Medical History: Reports: Hx Anxiety, Hx Depression Past Surgical History: Reports: Hx Hysterectomy, Hx Orthopedic Surgery - R knee - Immunizations Immunizations up to date: No Hx Diphtheria, Pertussis, Tetanus Vaccination: - unknown Review of Systems - Review of Systems Constitutional: Diaphoresis. denies: Chills, Fever Cardiovascular: Chest pain, Palpitations, Dizziness, Lightheaded Genitourinary: denies: Burning -: Yes All other systems reviewed and negative Physical Exam - Vital signs Vitals: Temp Pulse Resp BP Pulse Ox 98.1 F 56 L 18 122/62 96 02/28/19 11:04 02/28/19 11:04 02/28/19 11:04 02/28/19 11:04 02/28/19 11:04 - Notes Notes: GENERAL_APPEARANCE: well_nourished, alert, cooperative, no_acute_distress, no_obvious_discomfort. VITALS: reviewed, see vital signs table. HEAD: no_swelling\tenderness on the head. EYES: PERRL, EOMI, conjunctiva_clear. NOSE: no_nasal_discharge. MOUTH: (-)decreased moisture. THROAT: no_tonsilar_inflammation, no_airway_obstruction. no_lymphadenopathy NECK: supple, no_neck_tenderness, (-)thyromegaly. BACK: no_back_tenderness. CHEST_WALL: no_chest_tenderness. LUNGS: no_wheezing, no_rales, no_rhonchi, (-)accessory muscle use, good air exchange bilateral. HEART: normal_rate, normal_rhythm, normal_S1, normal_S2, (-)S3, (-)S4, no_murmur, no_rub. ABDOMEN: normal_BS, soft, no_abd_tenderness, (-)guarding, (-)rebound, no_organo megaly, no_abd_masses. EXTREMITIES: good pulses in all_extremities, no_swelling\tenderness in the e xtremities, no_edema. SKIN: warm, dry, good_color, no_rash. MENTAL_STATUS: speech_clear, oriented_X_3, anxious_affect, responds_appropriately to questions. NEURO: Neg Motor or Sensory Deficits on exam, CN 2-12 intact, DTR 2+ symmetric x 4, No cerbellar signs Course - Re-evaluation Re-evalutation: 02/28/19 14:51 EKG is a sinus rhythm. There may be some early LVH noted chest x-ray is normal first troponin is still in the negative range but not completely 0. Repeated it and it is increased. His history is very strange we are getting a CT scan I doubt any kind of stroke initially thought this may have been anxiety related or due to electrolyte disturbance or thyroid her thyroid levels are normal. Her lecture lites are within acceptable limits. 02/28/19 15:38 Troponins have increased but are still under the threshold of negative. Patient's history is just so bizarre. She had the chest discomfort then that went away the shortness of breath dizziness lightheadedness and the numbness and tingling she may have had an arrhythmia it is difficult to tell all her electrolytes are normal there is no changes in potassium or magnesium. Her thyroid numbers are normal. I think is appropriate to continue trending her enzymes and keep her on telemetry to be sure that she did have a tachyarrhythmia or something that caused the strange global symptoms. I spoke with the hospitalist service who are in agreement. - Vital Signs Vital signs: Temp Pulse Resp BP Pulse Ox 98.1 F 56 L 18 122/62 99 02/28/19 11:04 02/28/19 11:04 02/28/19 11:04 02/28/19 11:04 02/28/19 11:36 - Laboratory Result Diagrams: 02/28/19 11:30 02/28/19 11:30 Laboratory results interpreted by me: 02/28/19 02/28/19 11:30 11:30 RDW 15.7 H Baso % (Auto) 2.2 H Chloride 108 H AST 59 H - Diagnostic Test Radiology reviewed: Reports reviewed Radiology results interpreted by me: 02/28/19 14:51 Chest X-Ray 02/28/19 00:00 IMPRESSION: NO ACUTE RADIOGRAPHIC FINDING IN THE CHEST. - EKG Interpretation by [facility] EKG shows normal: Sinus rhythm Rhythm: NSR Discharge - Discharge Clinical Impression: Chest pain Qualifiers: Chest pain type: other chest pain Qualified Code(s): R07.89 - Other chest pain; R07.8 - Other chest pain Condition: Good Disposition: ADMITTED OBSERVATION Admitting Provider: Ekaterina (Hospitalist) Unit Admitted: Telemetry Referrals: DION VELEZ PA-C [Primary Care Provider] - Follow up as needed
--- NOTE | 2019-02-28 15:22 | RADIOLOGY REPORT (SQ) ---
EXAM DESCRIPTION: CT HEAD WITHOUT COMPLETED DATE/TIME: 02/28/2019 3:13 pm REASON FOR STUDY: transcient slurred speech COMPARISON: 05/14/2017 TECHNIQUE: Axial images acquired through the brain without intravenous contrast. Images reviewed wi th bone, brain and subdural windows. Additional sagittal and coronal reconstructions were generated. Images stored on PACS. All CT scanners at this facility use dose modulation, iterative reconstruction, and/or weight based d osing when appropriate to reduce radiation dose to as low as reasonably achievable (ALARA). [facility]: Dose Right [facility]: CareDose [facility]: Dose Right [facility]: Teradose 4D [facility]: IP Commerce RADIATION DOSE: CT Rad equipment meets quality standard of care and radiation dose reduction techniq ues were employed. CTDIvol: 53.2 mGy. DLP: 1044 mGy-cm. mGy. LIMITATIONS: None. FINDINGS: VENTRICLES: Normal size and contour. CEREBRUM: No masses. No hemorrhage. No midline shift. No evidence for acute infarction. Normal gra y/white matter differentiation. No areas of low density in the white matter. CEREBELLUM: No masses. No hemorrhage. No alteration of density. No evidence for acute infarction. EXTRAAXIAL SPACES: No fluid collections. No masses. ORBITS AND GLOBE: No intra- or extraconal masses. Normal contour of globe without masses. CALVARIUM: No fracture. PARANASAL SINUSES: No fluid or mucosal thickening. SOFT TISSUES: No mass or hematoma. OTHER: No other significant finding. IMPRESSION: NORMAL BRAIN CT WITHOUT CONTRAST. EVIDENCE OF ACUTE STROKE: NO. COMMENT: Quality ID # [id number]: Final reports with documentation of one or more dose reduction techniques (e.g., Automated exposure control, adjustment of the mA and/or kV according to patient size, use of iterative reconstruction technique) TECHNICAL DOCUMENTATION: JOB ID: [id number] [employer]- All Rights Reserved Reading location - IP/workstation name: [email or web address]
[2019-02-28] MEDS ORDERED: ONDANSETRON 4 MG TAB.RAPDIS PO PRN (16:21)
[2019-02-28] MEDS ORDERED: OXYCODONE-ACETAMINOPHEN 5-325 MG TABLET PO PRN (16:21)
[2019-02-28] MEDS ORDERED: ONDANSETRON HCL INJ/PF 4 MG/2 ML SDV IV PRN (16:21)
[2019-02-28] MEDS ORDERED: ACETAMINOPHEN 325 MG TABLET PO PRN (16:21)
[2019-02-28] MEDS ORDERED: ATORVASTATIN CALCIUM 10 MG TABLET PO ONE (16:33)
--- NOTE | 2019-02-28 16:58 | PDOC H&P ---
History of Present Illness Admission Date/PCP: DION VELEZ PA-C 68-year-old female who was admitted through the emergency room for this and tingling on the right side of her tongue, as well as shaking all over. Patient also told the ER physician that she had a brief episode of what she felt was chest pain and shortness of breath History of Present Illness: LYNETTE DUNN is a 68 year old female comes into the emergency room complaining of shaking all over and numbness and tingling on the right side of her tongue according to the patient and her daughter who is in the room this past weekend on Wednesday when she was talking she had several minutes of slurred speech and n umbness on the right side of her tongue. On Wednesday she seemed to be somewhat off balance and sluggish and mumbling according to her daughter. Her daughter states that this is very similar to what the patient experienced when she first was diagnosed with thyroid disease Patient about 6 months ago stopped taking her thyroid medicine for about 3 months and then was told by her physician to resume it. She actually stopped taking it on her own. She currently takes Tirosint 50mcg.. According to the patient she did not see any benefit from taking Synthroid past. Asked why the patient came to the emergency room she once again reiterated that it was for the numbness and tingling on her tongue as well as just not feeling right all over shaking. She also relates that she feels like her eyes are not tracking properly para graph patient has a history of vertigo past she also has been diagnosed with rheumatoid arthritis. On admission in the emergency room she has 2 elevated troponins first 0.09 the second 0.095. Patient denies chest pain and patient states that is not why she came to the emergency room. Patient is in no distress present time. Past Medical History Cardiac Medical History: Reports: Hyperlipidema Neurological Medical History: Reports: Migraine, Other - Vertigo Endocrine Medical History: Reports: Hypothyroidism GI Medical History: Reports: Gastroesophageal Reflux Disease Musculoskeltal Medical History: Reports: Other - Rheumatoid arthritis Psychiatric Medical History: Reports: Depression Past Surgical History Past Surgical History: Reports: Hysterectomy, Orthopedic Surgery - R knee Social History Smoking Status: Unknown if Ever Smoked Frequency of Alcohol Use: None Hx Recreational Drug Use: No Hx Prescription Drug Abuse: No - currently on chronic Vicodin for back pain - Advance Directive Resuscitation Status: Full Code Family History Family History: Reviewed & Not Pertinent, CAD Parental Family History Reviewed: No Children Family History Reviewed: No Sibling(s) Family History Reviewed.: No Medication/Allergy Home Medications: Cyanocobalamin (Vitamin B-12) [Vitamin B-12 Inj 1000 Mcg/1 ml Vial] 1,000 mcg INJ [id number] 11/22/14 Esomeprazole Magnesium [Nexium] 40 mg PO DAILY 11/22/14 Zolmitriptan [Zomig] 5 mg PO PRN PRN 11/22/14 Atorvastatin Calcium [Lipitor 10 mg Tablet] 1 tab PO DAILY 05/14/17 Meclizine HCl 25 mg PO TID #30 tablet 05/14/17 Methylprednisolone [Medrol Dosepack (4 mg/Tab) 21 Tab/Dosepak] 4 mg PO ASDIR PRN #21 tab.ds.pk 05/14/17 Paroxetine HCl [Paxil] 1 tab PO DAILY 05/14/17 Allergies/Adverse Reactions: No Known Allergies Allergy (Verified 02/28/19 10:54) Review of Systems Constitutional: PRESENT: fatigue, other - Shaking all over Eyes: PRESENT: visual disturbances Cardiovascular: PRESENT: other - Patient denies any chest pain when speaking to me. ABSENT: chest pain, dyspnea on exertion, edema, orthropnea, palpitations Respiratory: ABSENT: cough, hemoptysis Gastrointestinal: ABSENT: abdominal pain, constipation, diarrhea, hematemesis, hematochezia, nausea, vomiting Musculoskeletal: ABSENT: joint swelling Neurological: PRESENT: abnormal speech, numbness, paresthesias, tingling, vertigo Physical Exam Vital Signs: Temp Pulse Resp BP Pulse Ox 98.1 F 56 L 18 122/62 99 02/28/19 11:04 02/28/19 11:04 02/28/19 11:04 02/28/19 11:04 02/28/19 11:36 Intake & Output 02/27/19 02/28/19 03/01/19 06:59 06:59 06:59 Weight 74.5 kg General appearance: PRESENT: no acute distress Eye exam: PRESENT: conjunctiva pink, EOMI, PERRLA. ABSENT: scleral icterus Respiratory exam: PRESENT: clear to auscultation nedra. ABSENT: rales, rhonchi, wheezes Cardiovascular exam: PRESENT: RRR. ABSENT: diastolic murmur, rubs, systolic murmur Neurological exam: PRESENT: alert, awake, oriented to person, oriented to place, oriented to time, oriented to situation, CN II-XII grossly intact, other - [employer] are strong and equal tongue is midline, patient does have what appears to be a fine motor tremor of her upper extremities. ABSENT: motor sensory deficit Psychiatric exam: PRESENT: anxious Results Laboratory Results: 02/28/19 11:30 02/28/19 11:30 02/28/19 02/28/19 02/28/19 11:30 11:30 11:30 WBC 5.9 RBC 4.37 Hgb 12.6 Hct 38.3 MCV 88 MCH 28.7 MCHC 32.8 RDW 15.7 H Plt Count 205 Seg Neutrophils % 52.9 Sodium 142.3 Potassium 3.9 Chloride 108 H Carbon Dioxide 27 Anion Gap 7 BUN 11 Creatinine 0.72 Est GFR ( Amer) > 60 Glucose 93 Calcium 9.3 Magnesium 2.0 Total Bilirubin 0.5 AST 59 H Alkaline Phosphatase 87 Total Protein 6.8 Albumin 4.1 TSH Free T4 02/28/19 11:30 WBC RBC Hgb Hct MCV MCH MCHC RDW Plt Count Seg Neutrophils % Sodium Potassium Chloride Carbon Dioxide Anion Gap BUN Creatinine Est GFR ( Amer) Glucose Calcium Magnesium Total Bilirubin AST Alkaline Phosphatase Total Protein Albumin TSH 1.53 Free T4 1.07 02/28/19 02/28/19 02/28/19 11:30 11:30 13:07 Creatine Kinase 66 CK-MB (CK-2) 0.50 Troponin I 0.090 0.095 Impressions: Chest X-Ray 02/28/19 00:00 IMPRESSION: NO ACUTE RADIOGRAPHIC FINDING IN THE CHEST. Head CT 02/28/19 14:48 IMPRESSION: NORMAL BRAIN CT WITHOUT CONTRAST. EVIDENCE OF ACUTE STROKE: NO. Assessment and Plan - Diagnosis (1) Vertigo Is this a current diagnosis for this admission?: Yes Plan: She has a history of vertigo in the past and has been treated with meclizine although her symptoms today do not sound to be true vertiginous (2) Paresthesias/numbness Is this a current diagnosis for this admission?: Yes Plan: Patient is complaining of the right side of her tongue being numb, and just a generalized total body pain of this (3) Spondylosis Is this a current diagnosis for this admission?: Yes Plan: Has been seen in the past for cervical and lumbar spondylosis (4) Chest pain Qualifiers: Chest pain type: other chest pain Qualified Code(s): R07.89 - Other chest pain; R07.8 - Other chest pain Is this a current diagnosis for this admission?: Yes Plan: I do not feel the chest pain is a strong component of this history but she did mention this to the ER doctor and she does have 2 elevated troponins (5) Anxiety and depression Is this a current diagnosis for this admission?: Yes Plan: Patient does take medication for depression. Patient does seem to be anxious at this time (6) Hypothyroid Is this a current diagnosis for this admission?: Yes Plan: Feel like a lot of her symptoms are related to her thyroid, especially since her daughter states that a lot of her symptoms are reminiscent of when she was first diagnosed with thyroid disease or when she was not taking her medicine properly. - Time Time Spent with patient: 35 or more minutes - Because of the elevated troponins I have ordered a stress test for tomorrow morning finish out the series of cardiac enzymes. Put the patient in observation status, I have ordered a MRI of the brain well as carotid Dopplers. We will check thyroid functions as well. I have discussed the plan of action with the patient and her daughter and all their questions have been answered
[2019-02-28] MEDS: ENOXAPARIN SODIUM INJ 40 MG/0.4 ML DISP.SYRIN SUBCUT SCH (17:41)
--- NOTE | 2019-02-28 18:32 | RADIOLOGY REPORT (SQ) ---
EXAM DESCRIPTION: MRI HEAD WITHOUT COMPLETED DATE/TIME: 02/28/2019 6:20 pm REASON FOR STUDY: numbness tongue, nystagmus COMPARISON: None. TECHNIQUE: Multiplanar imaging includes non-contrasted T1, T2, FLAIR, and diffusion with ADC map seq uences. Images stored on PACS. LIMITATIONS: None. FINDINGS: ANATOMY: No anomalies. Normal vascular flow voids. Pituitary fossa normal. CSF SPACES: Normal in size and contour. No hemorrhage. CEREBRUM: Sulci and gyri normal in size and contour. Normal white matter signal on FLAIR imaging. No evidence of hemorrhage, mass, or extraaxial fluid collection. POSTERIOR FOSSA: No signal alteration. No hemorrhage. No edema, masses or mass effect. Internal kraig tory canals, cerebello-pontine angles, mastoids normal. DIFFUSION IMAGING: Negative for acute or sub-acute infarction. ORBITS: No masses. Globes normal. PARANASAL SINUSES: No fluid levels. Mucosa normal. OTHER: No other significant finding. IMPRESSION: NORMAL MRI OF THE BRAIN WITHOUT INTRAVENOUS GADOLINIUM CONTRAST. EVIDENCE OF ACUTE STROKE: NO. TECHNICAL DOCUMENTATION: JOB ID: [id number]- All Rights Reserved Reading location - IP/workstation name: [email or web address]
[2019-02-28 18:56] LABS: INTERNATIONAL RATION (INR) 1.07; PROTHROMBIN TIME 13.9 SEC (11.4-15.4)
[2019-02-28 19:15] LABS: CREATINE KINASE MB 0.49 ng/mL (<4.55); TROPONIN I 0.091 ng/mL
--- NOTE | 2019-02-28 19:21 | RADIOLOGY REPORT (SQ) ---
EXAM DESCRIPTION: CAROTID DOPPLER COMPLETED DATE/TIME: 02/28/2019 6:26 pm REASON FOR STUDY: TIA? COMPARISON: None. TECHNIQUE: Grayscale ultrasound, Doppler velocity and spectra, and color Doppler images acquired of the extra-cranial carotid and vertebral arteries. Images stored on PACS. LIMITATIONS: None. FINDINGS: RIGHT CAROTID CCA Velocities: Within normal limits. ICA Velocities Peak systolic 75 cm/s. End diastolic 31 cm/s. Proximal ICA/CCA peak systolic ratio 1.3. Small amount soft plaque in the carotid bulb and proximal ICA. LEFT CAROTID CCA Velocities: Within normal limits. ICA Velocities Peak systolic 70 set cm/s. End diastolic 20 sick cm/s. Proximal ICA/CCA peak systolic ratio 1.2. Small amount soft plaque in the carotid bulb and proximal ICA. VERTEBRAL ARTERIES: Antegrade flow. Normal waveforms. SUBCLAVIAN ARTERIES: No finding. OTHER: No other significant finding. IMPRESSION: NO HEMODYNAMICALLY SIGNIFICANT STENOSIS. COMMENT: Quality ID #[id number]: Velocity criteria are extrapolated from the diameter data as defined by t he Society of Radiologists in Ultrasound Consensus Conference. Radiology 2003: 229; 340-346. TECHNICAL DOCUMENTATION: JOB ID: [id number] [employer]- All Rights Reserved Reading location - IP/workstation name: [email or web address]
[2019-02-28 20:09] LABS: FOLATE 14.8 ng/mL (>2.76)
[2019-02-28] MEDS: NORMAL SALINE 1000 ML 1,000 ML IV PRN (21:51)
[2019-03-01 02:05] LABS: CREATINE KINASE MB < 0.22 ng/mL (<4.55)
[2019-03-01 08:33] LABS: ALBUMIN 3.2 g/dL (3.5-5.0); ALKALINE PHOSPHATASE 75 U/L (38-126); ANION GAP 5 (5-19); ASPARTATE AMINO TRANSFERASE 46 U/L (14-36); BILIRUBIN,DIRECT 0.1 mg/dL (0.0-0.4); BILIRUBIN,TOTAL 0.4 mg/dL (0.2-1.3); BLOOD UREA NITROGEN 9 mg/dL (7-20); CALCIUM 8.2 mg/dL (8.4-10.2); CARBON DIOXIDE 22 mmol/L (22-30); CHLORIDE 115 mmol/L (98-107); GLUCOSE 85 mg/dL (75-110); PHOSPHORUS 3.2 mg/dL (2.5-4.5); POTASSIUM 4.2 mmol/L (3.6-5.0); TOTAL PROTEIN 5.6 g/dL (6.3-8.2)
[2019-03-01] MEDS: NORMAL SALINE 1000 ML 1,000 ML IV PRN (08:36)
[2019-03-01 08:37] LABS: ABSOLUTE BASOPHILS # (AUTO) 0.1 10^3/uL (0.0-0.2); ABSOLUTE EOSINOPHILS # (AUTO) 0.1 10^3/uL (0.0-0.6); ABSOLUTE LYMPHOCYTES (AUTO) 1.7 10^3/uL (0.5-4.7); ABSOLUTE MONOCYTES (AUTO) 0.5 10^3/uL (0.1-1.4); ABSOLUTE NEUT (AUTO) 2.5 10^3/uL (1.7-8.2); BASOPHILS % (AUTO) 1.3 % (0-2); EOSINOPHILS % (AUTO) 2.7 % (0-6); HEMOGLOBIN 11.8 g/dL (12.0-15.5); LYMPHOCYTES % (AUTO) 35.4 % (13-45); MEAN CORPUSCULAR HEMOGLOBIN 28.7 pg (27.0-33.4); MEAN CORPUSCULAR HGB CONC 32.8 g/dL (32.0-36.0); MEAN CORPUSCULAR VOLUME 88 fl (80-97); MONOCYTES % (AUTO) 9.4 % (3-13); PLATELET COUNT 192 10^3/uL (150-450); RED BLOOD COUNT 4.11 10^6/uL (3.72-5.28); RED CELL DISTRIBUTION WIDTH 15.2 % (11.5-14.0); SEGMENTED NEUTROPHILS % (AUTO) 51.2 % (42-78); TOTAL CELLS COUNTED % (AUTO) 100 %; WHITE BLOOD COUNT 4.9 10^3/uL (4.0-10.5)
[2019-03-01 08:43] LABS: TROPONIN I 0.089 ng/mL
[2019-03-01 08:47] LABS: CREATINE KINASE MB < 0.22 ng/mL (<4.55)
[2019-03-01] MEDS: PAROXETINE HCL 20 MG TABLET PO SCH (10:27)
[2019-03-01] MEDS: ENOXAPARIN SODIUM INJ 40 MG/0.4 ML DISP.SYRIN SUBCUT SCH (10:30)
[2019-03-01] MEDS ORDERED: MECLIZINE HCL 12.5 MG TABLET PO ONE ×2 (11:57→13:00)
[2019-03-01] MEDS ORDERED: MECLIZINE HCL 12.5 MG TABLET PO PRN ×2 (13:38→17:27)
[2019-03-01] MEDS ORDERED: METHOTREXATE SODIUM 2.5 MG TABLET PO SCH (13:45)
[2019-03-01] MEDS ORDERED: MECLIZINE HCL 25 MG TABLET PO PRN (17:31)
--- NOTE | 2019-03-01 17:42 | PDOC PROGRESS REPORT ---
Subjective Progress Note for:: 03/01/19 Subjective:: The patient was having more lightheadedness/dizziness. She states that the 12.5 mg of meclizine was helpful. Upon further questioning she admits that over the last 6 months or so she has been easily fatigued and gets markedly short of breath with minimal exertion. She does get some chest discomfort with this. She feels very tired despite being back on her thyroid medication. She denies depression (but is on Zoloft). Her appetite is moderate. Finally she states that her mother's heart disease problem started at approximately the same age. Reason For Visit: VERTIGO,NUMBNESS,RA Physical Exam Vital Signs: Temp Pulse Resp BP Pulse Ox 97.8 F 65 20 96/52 L 99 03/01/19 15:41 03/01/19 15:41 03/01/19 15:41 03/01/19 15:41 03/01/19 15:41 Intake & Output 02/28/19 03/01/19 03/02/19 06:59 06:59 06:59 Intake Total 250 1000 Balance 250 1000 Weight 73.6 kg General appearance: PRESENT: no acute distress, cooperative, well-developed Head exam: PRESENT: atraumatic, normocephalic Eye exam: PRESENT: conjunctiva pink, EOMI, nystagmus - To the left. ABSENT: scleral icterus Ear exam: PRESENT: normal external ear exam. ABSENT: bleeding, drainage Mouth exam: PRESENT: moist, tongue midline Neck exam: ABSENT: carotid bruit, JVD, lymphadenopathy Respiratory exam: PRESENT: clear to auscultation nedra, symmetrical, unlabored. ABSENT: accessory muscle use, rales, rhonchi, tachypnea, wheezes Cardiovascular exam: PRESENT: RRR, +S1, +S2 GI/Abdominal exam: PRESENT: normal bowel sounds, soft. ABSENT: distended, guarding, tenderness Rectal exam: PRESENT: deferred Gentrourinary exam: ABSENT: indwelling catheter Extremities exam: PRESENT: joint swelling - Mild swelling of the finger joints. No erythema or disfiguration.. ABSENT: pedal edema Musculoskeletal exam: PRESENT: ambulatory, normal inspection Neurological exam: PRESENT: alert, awake, oriented to person, oriented to place, oriented to time, oriented to situation, CN II-XII grossly intact Psychiatric exam: PRESENT: anxious - Clearly concerned about her current symptomatology, appropriate affect. ABSENT: agitated Focused psych exam: ABSENT: delusional, restlessness Skin exam: PRESENT: dry, normal color, warm. ABSENT: rash Results Laboratory Results: 03/01/19 07:28 03/01/19 07:28 02/28/19 02/28/19 03/01/19 18:36 18:36 07:28 WBC 4.9 RBC 4.11 Hgb 11.8 L Hct 36.0 MCV 88 MCH 28.7 MCHC 32.8 RDW 15.2 H Plt Count 192 Seg Neutrophils % 51.2 Sodium Potassium Chloride Carbon Dioxide Anion Gap BUN Creatinine Est GFR ( Amer) Glucose Calcium Phosphorus Total Bilirubin AST Alkaline Phosphatase Total Protein Albumin Vitamin B12 608.0 Folate 14.80 Free T3 pg/mL 3.01 03/01/19 07:28 WBC RBC Hgb Hct MCV MCH MCHC RDW Plt Count Seg Neutrophils % Sodium 142.4 Potassium 4.2 Chloride 115 H Carbon Dioxide 22 Anion Gap 5 BUN 9 Creatinine 0.59 Est GFR ( Amer) > 60 Glucose 85 Calcium 8.2 L Phosphorus 3.2 Total Bilirubin 0.4 AST 46 H Alkaline Phosphatase 75 Total Protein 5.6 L Albumin 3.2 L Vitamin B12 Folate Free T3 pg/mL 02/28/19 02/28/19 02/28/19 11:30 11:30 13:07 Creatine Kinase 66 CK-MB (CK-2) 0.50 Troponin I 0.090 0.095 02/28/19 03/01/19 03/01/19 18:36 01:02 07:28 Creatine Kinase CK-MB (CK-2) 0.49 < 0.22 < 0.22 Troponin I 0.091 0.090 0.089 Impressions: Carotid Doppler Study 02/28/19 00:00 IMPRESSION: NO HEMODYNAMICALLY SIGNIFICANT STENOSIS. Chest X-Ray 02/28/19 00:00 IMPRESSION: NO ACUTE RADIOGRAPHIC FINDING IN THE CHEST. Head MRI 02/28/19 00:00 IMPRESSION: NORMAL MRI OF THE BRAIN WITHOUT INTRAVENOUS GADOLINIUM CONTRAST. EVIDENCE OF ACUTE STROKE: NO. Head CT 02/28/19 14:48 IMPRESSION: NORMAL BRAIN CT WITHOUT CONTRAST. EVIDENCE OF ACUTE STROKE: NO. Assessment and Plan - Diagnosis (1) Vertigo Is this a current diagnosis for this admission?: Yes Plan: 03/01/2019-patient does have a left-sided nystagmus and improves with meclizine. I told her we will increase the meclizine to 25 mg every 8 hours as needed. (2) Paresthesias/numbness Is this a current diagnosis for this admission?: Yes Plan: 03/01/2019-patient states that her tongue still twitches. She reported having an episode during this encounter. I was unable to discern any marked dysfunction. It certainly could have been subtle and the patient would be much more sensitive to the sensation then I would to the observation. She reports that this is stable. (3) Spondylosis Is this a current diagnosis for this admission?: Yes Plan: 03/01/2019-she does have a history of cervical and lumbar spondylosis. She tries to avoid pain medications. She will occasionally use tramadol. Her pain is currently at baseline. (4) Chest pain Qualifiers: Chest pain type: other chest pain Qualified Code(s): R07.89 - Other chest pain; R07.8 - Other chest pain Is this a current diagnosis for this admission?: Yes Plan: 03/01/2019-a great deal of time was spent discussing her symptoms. Her weakness and exertional dyspnea have continued despite returning to her levothyroxine and exhibiting normal thyroid studies. She told me that the smallest amount of exertion will make her short of breath. She feels like she cannot catch her breath. She will occasionally have that chest tightness during these episodes. She reports getting extremely fatigued with little exertion and remains fairly inactive during most of the day. She is able to go to the store and do some shopping. She denies acute depression. Her troponins are minimally elevated at 0.09. Her EKG suggests left ventricular hypertrophy. She also states that her mother showed signs of her heart disease at approximately this age. Because of this I am adding an echocardiogram and repeating her EKG. She certainly could have underlying heart disease. If she cannot perform the stress test tomorrow then I will refer her back to her primary care to set up a consult with cardiology. She may in fact benefit from a stress echo and may end up having cardiac catheterization. I will defer to cardiology and hold on any treatment changes until the results of the echocardiogram are available. I did resume her atorvastatin and started her on 81 mg aspirin daily. (5) Hypothyroid Qualifiers: Hypothyroidism type: unspecified Qualified Code(s): E03.9 - Hypothyroidism, unspecified Is this a current diagnosis for this admission?: Yes Plan: 03/01/2019-the patient is back on her levothyroxine. Her thyroid studies are normal. This is certainly not the cause of her fatigue and weakness. (6) Anxiety and depression Is this a current diagnosis for this admission?: Yes Plan: 03/01/2019-the patient is on Zoloft. She seems quite anxious today and I believe that is because of our discussion and the serious consideration of heart disease. As noted above her mother had heart disease at approximately this age. I do not believe a change in her sertraline is warranted at this time. (7) HLD (hyperlipidemia) Qualifiers: Hyperlipidemia type: unspecified Qualified Code(s): E78.5 - Hyperlipidemia, unspecified Is this a current diagnosis for this admission?: Yes Plan: 03/01/2019-I will resume her atorvastatin 20 mg daily. I have initiated aspirin therapy as noted above. - Time Time Spent with patient: 15-24 minutes Medications reviewed and adjusted accordingly: Yes Anticipated discharge: Home Within: within 48 hours
[2019-03-01] MEDS: ASPIRIN 81 MG TABLET, ENT COATED PO SCH (22:27)
[2019-03-01] MEDS: PREGABALIN 75 MG CAPSULE PO SCH (22:27)
[2019-03-01] MEDS: ATORVASTATIN CALCIUM 20 MG TABLET PO SCH (22:27)
[2019-03-02] MEDS: NORMAL SALINE 1000 ML 1,000 ML IV PRN (02:00)
--- NOTE | 2019-03-02 06:42 | EKG REPORT ---
SEVERITY:- OTHERWISE NORMAL ECG - SINUS RHYTHM BORDERLINE LEFT AXIS DEVIATION : Confirmed by: Sam Maynard MD 02-Mar-2019 06:41:57
[2019-03-02] MEDS: MAGNESIUM OXIDE 400 MG TABLET PO SCH (09:35)
[2019-03-02] MEDS: PANTOPRAZOLE SODIUM 40 MG TABLET.DR PO SCH (09:35)
[2019-03-02] MEDS: PREGABALIN 75 MG CAPSULE PO SCH ×2 (09:35→22:00)
[2019-03-02] MEDS: SERTRALINE HCL 50 MG TABLET PO SCH (09:35)
[2019-03-02] MEDS: FOLIC ACID 1 MG TABLET PO SCH (09:36)
[2019-03-02] MEDS: ENOXAPARIN SODIUM INJ 40 MG/0.4 ML DISP.SYRIN SUBCUT SCH (09:36)
[2019-03-02] MEDS: PAROXETINE HCL 20 MG TABLET PO SCH (09:36)
[2019-03-02] MEDS ORDERED: (PENDING PHARMACY ID) (Esomeprazole Mag Trihydrate [Nexium] 40 MG) PO SCH (10:00)
[2019-03-02] MEDS ORDERED: LEVOTHYROXINE SODIUM 13 MCG PO SCH (10:00)
--- NOTE | 2019-03-02 15:34 | XCELERA REPORT ---
[address] [address] Transthoracic Echocardiogram Report Name: LYNETTE DUNN Age: 68 yrs Gender: Female : 1950 Patient Status: Inpatient Patient Location: [address] [place] [address] Study Date: 03/01/2019 05:59 PM Height: 63 in Weight: 162 lb BSA: 1.8 m2 Procedure: A two-dimensional transthoracic echocardiogram with color flow and Doppler was performed. The study was technically limited with all images being suboptimal in quality. Reason For Study: dyspnea with exertion History: dyspnea with exertion. Ordering Physician: AZUL MAHER Performed By: Nury Hampton Interpretation Summary The left ventricle is normal in size. There is normal left ventricular wall thickness. LV EF is 60% The left ventricular ejection fraction is within normal limits. Doppler measurements suggest normal left ventricular diastolic function The left ventricular wall motion is normal. There is no thrombus. Probably no ASD , VSD , or PFO seen. The right ventricle is normal in size and function. The right atrium is normal. The left atrial size is normal. There is no evidence of mitral valve prolapse. There is no vegetation seen on the mitral valve. There is no mitral valve stenosis. There is a mild to moderate amount of mitral regurgitation There is no aortic valvular vegetation. There is no aortic valve stenosis There is no LVOT obstruction. No aortic regurgitation is present. There is no tricuspid stenosis. There is a moderate to severe amount of tricuspid regurgitation There is moderate to severe pulmonary hypertension by echo RVSP is 59 to 64 mm of hg , with RA mean of 15 to 20. There is no pulmonic valvular stenosis. There is no pulmonic valvular regurgitation. The inferior vena cava appeared dilated and decreased < 50% with respiration (RAP 15-20 mmHg) There is no pericardial effusion. MMode/2D Measurements & Calculations RVDd: 2.5 cm LVIDd: 5.1 cm FS: 28.4 % Ao root diam: 2.9 cm IVSd: 0.91 cm LVIDs: 3.6 cm EDV(Teich): Ao root area: LVPWd: 0.85 cm 123.0 ml 6.8 cm2 ESV(Teich): 55.9 mlLA dimension: 3.2 cm EF(Teich): 54.5 % LVLd ap4: 5.1 cm SV(MOD-sp4): EDV(MOD-sp4): 43.0 ml 65.0 ml LVLs ap4: 3.9 cm ESV(MOD-sp4): 22.0 ml EF(MOD-sp4): 66.2 % Doppler Measurements & Calculations MV E max sky: MV P1/2t max sky: Ao V2 max: LV V1 max P.3 cm/sec 111.0 cm/sec 102.8 cm/sec 2.9 mmHg MV A max sky: MV P1/2t: 55.4 msec Ao max P.2 mmHg LV V1 max: 77.0 cm/sec MVA(P1/2t): 4.0 cm2 84.9 cm/sec MV E/A: 1.2 MV dec slope: 586.5 cm/sec2 MV dec time: 0.20 sec PA V2 max: TR max sky: MV P1/2t-pr_phl: 68.5 cm/sec 333.0 cm/sec 55.4 msec PA max PG: TR max P.4 mmHg 1.9 mmHg Left Ventricle The left ventricle is normal in size. There is normal left ventricular wall thickness. LV EF is 60%. The left ventricular ejection fraction is within normal limits. Doppler measurements suggest normal left ventricular diastolic function. The left ventricular wall motion is normal. There is no thrombus. Probably no ASD , VSD , or PFO seen. Right Ventricle The right ventricle is normal in size and function. The right ventricle is not well visualized secondary to technical limitations. Atria The right atrium is normal. The left atrial size is normal. Mitral Valve There is no evidence of mitral valve prolapse. There is no vegetation seen on the mitral valve. There is no mitral valve stenosis. There is a mild to moderate amount of mitral regurgitation. Aortic Valve There is no aortic valvular vegetation. There is no aortic valve stenosis. There is no LVOT obstruction. No aortic regurgitation is present. Tricuspid Valve There is no tricuspid stenosis. There is a moderate to severe amount of tricuspid regurgitation. There is moderate to severe pulmonary hypertension by echo. RVSP is 59 to 64 mm of hg , with RA mean of 15 to 20. Pulmonic Valve There is no pulmonic valvular stenosis. There is no pulmonic valvular regurgitation. Great Vessels The aortic root is normal size. The inferior vena cava appeared dilated and decreased < 50% with respiration (RAP 15-20 mmHg). Effusions There is no pericardial effusion. : AZUL MAHER, Meghann
--- NOTE | 2019-03-02 21:12 | PDOC PROGRESS REPORT ---
Subjective Progress Note for:: 03/02/19 Subjective:: Patient feels no better. Echocardiogram revealed moderate to severe pulmonary hypertension. Awaiting CT angiogram. No chest pain at this time. Reason For Visit: VERTIGO,NUMBNESS,RA Physical Exam Vital Signs: Temp Pulse Resp BP Pulse Ox 98.4 F 88 20 93/48 L 96 03/02/19 15:40 03/02/19 15:40 03/02/19 15:40 03/02/19 15:40 03/02/19 15:40 Intake & Output 03/01/19 03/02/19 03/03/19 06:59 06:59 06:59 Intake Total 250 2000 Balance 250 2000 Weight 73.6 kg 64.2 kg General appearance: PRESENT: no acute distress, well-developed Head exam: PRESENT: atraumatic, normocephalic Eye exam: PRESENT: conjunctiva pink. ABSENT: scleral icterus Ear exam: PRESENT: normal external ear exam. ABSENT: bleeding, drainage Mouth exam: PRESENT: moist, tongue midline Respiratory exam: PRESENT: clear to auscultation nedra, symmetrical, unlabored. ABSENT: rales, rhonchi, tachypnea, wheezes Cardiovascular exam: PRESENT: RRR, +S1, +S2, systolic murmur GI/Abdominal exam: PRESENT: normal bowel sounds, soft. ABSENT: distended, guarding, tenderness Rectal exam: PRESENT: deferred Extremities exam: ABSENT: joint swelling, pedal edema, tenderness Musculoskeletal exam: PRESENT: ambulatory, normal inspection. ABSENT: deformity Neurological exam: PRESENT: alert, awake, oriented to person, oriented to place, oriented to time, oriented to situation, CN II-XII grossly intact Psychiatric exam: PRESENT: anxious, appropriate affect. ABSENT: agitated Focused psych exam: ABSENT: delusional, restlessness Skin exam: PRESENT: dry, normal color, warm. ABSENT: rash Results Laboratory Results: 03/01/19 07:28 03/01/19 07:28 02/28/19 02/28/19 02/28/19 11:30 11:30 13:07 Creatine Kinase 66 CK-MB (CK-2) 0.50 Troponin I 0.090 0.095 02/28/19 03/01/19 03/01/19 18:36 01:02 07:28 Creatine Kinase CK-MB (CK-2) 0.49 < 0.22 < 0.22 Troponin I 0.091 0.090 0.089 Impressions: Carotid Doppler Study 02/28/19 00:00 IMPRESSION: NO HEMODYNAMICALLY SIGNIFICANT STENOSIS. Chest X-Ray 02/28/19 00:00 IMPRESSION: NO ACUTE RADIOGRAPHIC FINDING IN THE CHEST. Head MRI 02/28/19 00:00 IMPRESSION: NORMAL MRI OF THE BRAIN WITHOUT INTRAVENOUS GADOLINIUM CONTRAST. EVIDENCE OF ACUTE STROKE: NO. Head CT 02/28/19 14:48 IMPRESSION: NORMAL BRAIN CT WITHOUT CONTRAST. EVIDENCE OF ACUTE STROKE: NO. Assessment and Plan - Diagnosis (1) Vertigo Is this a current diagnosis for this admission?: Yes Plan: 03/01/2019-patient does have a left-sided nystagmus and improves with meclizine. I told her we will increase the meclizine to 25 mg every 8 hours as needed. 03/02/2019-improved with meclizine. Continue as needed treatment. CT scan of the head without contrast was normal. (2) Paresthesias/numbness Is this a current diagnosis for this admission?: Yes Plan: 03/01/2019-patient states that her tongue still twitches. She reported having an episode during this encounter. I was unable to discern any marked dysfunction. It certainly could have been subtle and the patient would be much more sensitive to the sensation then I would to the observation. She reports that this is stable. 03/02/2019-clinically stable. Still unsure of the etiology. Anxiety is a possibility but cannot be definite. (3) Spondylosis Is this a current diagnosis for this admission?: Yes Plan: 03/01/2019-she does have a history of cervical and lumbar spondylosis. She tries to avoid pain medications. She will occasionally use tramadol. Her pain is currently at baseline. 03/02/2019-continue current conservative management. (4) Chest pain Qualifiers: Chest pain type: other chest pain Qualified Code(s): R07.89 - Other chest pain; R07.8 - Other chest pain Is this a current diagnosis for this admission?: Yes Plan: 03/01/2019-a great deal of time was spent discussing her symptoms. Her weakness and exertional dyspnea have continued despite returning to her levothyroxine and exhibiting normal thyroid studies. She told me that the smallest amount of exertion will make her short of breath. She feels like she cannot catch her breath. She will occasionally have that chest tightness during these episodes. She reports getting extremely fatigued with little exertion and remains fairly inactive during most of the day. She is able to go to the store and do some shopping. She denies acute depression. Her troponins are minimally elevated at 0.09. Her EKG suggests left ventricular hypertrophy. She also states that her mother showed signs of her heart disease at approximately this age. Because of this I am adding an echocardiogram and repeating her EKG. She certainly could have underlying heart disease. If she cannot perform the stress test tomorrow then I will refer her back to her primary care to set up a consult with cardiology. She may in fact benefit from a stress echo and may end up having cardiac catheterization. I will defer to cardiology and hold on any treatment changes until the results of the echocardiogram are available. I did resume her atorvastatin and started her on 81 mg aspirin daily. 03/02/2019-with echo cardiology report the pulmonary hypertension is likely causing a slight bump in troponin. Awaiting stress test. (5) Hypothyroid Qualifiers: Hypothyroidism type: unspecified Qualified Code(s): E03.9 - Hypothyroidism, unspecified Is this a current diagnosis for this admission?: Yes Plan: 03/01/2019-the patient is back on her levothyroxine. Her thyroid studies are normal. This is certainly not the cause of her fatigue and weakness. 03/02/2019-continue levothyroxine. (6) Anxiety and depression Is this a current diagnosis for this admission?: Yes Plan: 03/01/2019-the patient is on Zoloft. She seems quite anxious today and I believe that is because of our discussion and the serious consideration of heart disease. As noted above her mother had heart disease at approximately this age. I do not believe a change in her sertraline is warranted at this time. 03/02/2019-continue Zoloft. Today's anxiety clearly related to clinical discussion and pending CT angiogram. (7) HLD (hyperlipidemia) Qualifiers: Hyperlipidemia type: unspecified Qualified Code(s): E78.5 - Hyperlipidemia, unspecified Is this a current diagnosis for this admission?: Yes Plan: 03/01/2019-I will resume her atorvastatin 20 mg daily. I have initiated aspirin therapy as noted above. 03/02/2019-continue statin therapy (8) Pulmonary hypertension Is this a current diagnosis for this admission?: Yes Plan: 03/02/2019-echocardiogram identified moderate to severe pulmonary hypertension. Etiology unknown at this time. Will obtain a CT angiogram to rule out pulmonary embolus. (9) Mitral regurgitation Qualifiers: Cardiac valve disease etiology: etiology unspecified Qualified Code(s): I34.0 - Nonrheumatic mitral (valve) insufficiency Is this a current diagnosis for this admission?: Yes Plan: 03/02/2019-echocardiogram revealed mild to moderate mitral regurgitation. Will investigate further with the patient. She will need cardiology follow-up as an outpatient. (10) Tricuspid regurgitation Qualifiers: Cardiac valve disease etiology: etiology unspecified Qualified Code(s): I07.1 - Rheumatic tricuspid insufficiency Is this a current diagnosis for this admission?: Yes Plan: 03/02/2019-echocardiogram revealed moderate to severe tricuspid regurgitation. Will need follow-up with health information specialist. - Time Time Spent with patient: 15-24 minutes Medications reviewed and adjusted accordingly: Yes Anticipated discharge: Home Within: within 24 hours - Plan Summary Plan Summary: 03/02/2019-19:30 Return to the floor to check on the patient and see if the CT angiogram has been completed. They are having trouble with IV access and she will get it later tonight pending successful placement of 20-gauge IV. If negative I will discharge patient tomorrow. If positive anticoagulation will be started.
[2019-03-02] MEDS: ASPIRIN 81 MG TABLET, ENT COATED PO SCH (22:00)
[2019-03-02] MEDS: ATORVASTATIN CALCIUM 20 MG TABLET PO SCH (22:00)
--- NOTE | 2019-03-02 22:12 | RADIOLOGY REPORT (SQ) ---
CT CHEST ANGIOGRAPHY WITHOUT THEN WITH IV CONTRAST EXAM DATE: 03/02/2019 5:00 PM CDT HISTORY: Shortness of breath. COMPARISON: None. TECHNIQUE: CT angiogram of the chest with IV contrast. 3-D MIP images were obtained in coronal and sagittal reconstructions. This exam was performed according to our departmental dose-optimization program, which includes automated exposure control, adjustment of the mA and/or kV according to patient size and/or use of iterative reconstruction technique. FINDINGS: The pulmonary vessels are suboptimally opacified with contrast. However, no saddle embolus is seen. The thyroid gland is normal. No mediastinal or hilar adenopathy. The heart size is normal without pericardial effusion. The thoracic aorta is normal caliber. No consolidation, pleural effusion, or pneumothorax is identified in the visualized lungs. IMPRESSION: Limited study due to suboptimal opacification of the pulmonary vessels. However, no saddle embolus is seen.
[2019-03-03 05:12] LABS: ANION GAP 5 (5-19); BLOOD UREA NITROGEN 8 mg/dL (7-20); CARBON DIOXIDE 20 mmol/L (22-30); CHLORIDE 117 mmol/L (98-107); GLUCOSE 83 mg/dL (75-110); POTASSIUM 3.9 mmol/L (3.6-5.0)
[2019-03-03] MEDS: NORMAL SALINE 1000 ML 1,000 ML IV PRN (05:47)
[2019-03-03] MEDS: ENOXAPARIN SODIUM INJ 40 MG/0.4 ML DISP.SYRIN SUBCUT SCH (09:59)
[2019-03-03] MEDS: SERTRALINE HCL 50 MG TABLET PO SCH (09:59)
[2019-03-03] MEDS: PAROXETINE HCL 20 MG TABLET PO SCH (09:59)
[2019-03-03] MEDS: PANTOPRAZOLE SODIUM 40 MG TABLET.DR PO SCH (10:00)
[2019-03-03] MEDS: PREGABALIN 75 MG CAPSULE PO SCH (10:00)
[2019-03-03] MEDS: FOLIC ACID 1 MG TABLET PO SCH (10:00)
[2019-03-03] MEDS: MAGNESIUM OXIDE 400 MG TABLET PO SCH (10:00)
--- NOTE | 2019-03-03 12:44 | PDOC DISCHARGE SUMMARY ---
General - Admit/Disc Date/PCP Admission Date/Primary Care Provider: 02/28/19 16:50 DION VELEZ PA-C Discharge Date: 03/03/19 - Discharge Diagnosis (1) Vertigo Is this a current diagnosis for this admission?: Yes Summary: The patient does exhibit nystagmus and the vertigo is improved with meclizine. Will discharge with a prescription for meclizine. (2) Paresthesias/numbness Is this a current diagnosis for this admission?: Yes Summary: Exact etiology is unknown but the condition is improved. Follow-up with primary care provider. (3) Spondylosis Is this a current diagnosis for this admission?: Yes Summary: Chronic pain management per the primary care provider. (4) Chest pain Is this a current diagnosis for this admission?: Yes Summary: Patient ruled out for acute coronary syndrome. The chest pain could be related to the pulmonary process causing the pulmonary hypertension. She will be referred to Dr. Coto at the [facility] where her primary care provider is located. (5) Hypothyroid Is this a current diagnosis for this admission?: Yes Summary: Continue levothyroxine (6) Anxiety and depression Is this a current diagnosis for this admission?: Yes Summary: Continue SSRI therapy (7) HLD (hyperlipidemia) Is this a current diagnosis for this admission?: Yes Summary: Continue atorvastatin (8) Pulmonary hypertension Is this a current diagnosis for this admission?: Yes Summary: The patient was found to have moderate to severe pulmonary hypertension by echo. A CT angiogram was ordered and was negative for saddle embolus. The study was somewhat limited and more detailed information was not available. She also has tricuspid and mitral valve regurgitation noted on the echocardiogram. Pulmonary embolus certainly does not explain the pulmonary hypertension. Upon reflection the methotrexate is the most likely cause as the patient denies other risk factors. She will follow-up with cardiology. (9) Mitral regurgitation Is this a current diagnosis for this admission?: Yes Summary: Noted by echocardiogram. Will defer to cardiology for further management. (10) Tricuspid regurgitation Is this a current diagnosis for this admission?: Yes Summary: Noted on echocardiogram. Will defer to cardiology for further management. (11) Rheumatoid arthritis Is this a current diagnosis for this admission?: Yes Summary: The patient has been on methotrexate and folic acid for some time for her rheumatoid arthritis. She takes [address] angiogram did not reveal pulmonary embolus and adverse effect of methotrexate is a significant possibility for etiology of her pulmonary hypertension. The pulmonary hypertension certainly explains her dyspnea with minimal exertion. Could also explain the chest discomfort. I directed her to stop her methotrexate and folic acid and follow-up with rheumatology as soon as possible. - Additional Information Resuscitation Status: Full Code Discharge Diet: Cardiac Discharge Activity: Activity As Tolerated, Balance Activity w/Rest Prescriptions: Meclizine HCl [Antivert 25 mg Tablet] 25 mg PO Q8HP PRN 15 Days #15 tablet PRN Reason: Dizziness Meclizine HCl [Wal-Dram 2] 25 mg PO Q12H PRN #15 tablet PRN Reason: Dizziness Home Medications: Atorvastatin Calcium [Lipitor 20 mg Tablet] 20 mg PO DAILY 03/01/19 Esomeprazole Mag Trihydrate [Nexium] 40 mg PO DAILY 03/01/19 Folic Acid [Folvite 1 mg Tablet] 1 mg PO DAILY 03/01/19 Levothyroxine Sodium [Tirosint] 13 mcg PO DAILY 03/01/19 Magnesium Oxide [Mag-Ox 400 mg Tablet] 400 mg PO DAILY 03/01/19 Pregabalin 75 mg PO BID 03/01/19 Sertraline HCl [Zoloft] 100 mg PO DAILY 03/01/19 Zolmitriptan 5 mg PO ASDIR PRN 03/01/19 Aspirin [Ecotrin 81 mg EC Tablet] 81 mg PO QHS tabec 03/03/19 Meclizine HCl [Antivert 25 mg Tablet] 25 mg PO Q8HP PRN 15 Days #15 tablet 03/03/19 Meclizine HCl [Wal-Dram 2] 25 mg PO Q12H PRN #15 tablet 03/03/19 History of Present Illness Patient complains of: Chest pain History of Present Illness: LYNETTE DUNN is a 68 year old female with a past medical history of hypertension, hyperlipidemia, rheumatoid arthritis and depression. She has been noticing increased shortness of breath with less and less exertion. This is been going on for several months. She did stop the levothyroxine that she was taking for her hypothyroidism. She is back on her levothyroxine for over 6 months with normal thyroid studies. This certainly is not the cause of the worsening shortness of breath. She is having chest discomfort and so she was referred to the hospital service for rule out. Hospital Course Hospital Course: The patient had slightly elevated serum troponins. There were all approximately 0.09. EKG was unremarkable and stress test was negative. An echocardiogram was obtained and this showed moderate to severe pulmonary hypertension with mild to moderate mitral regurgitation and moderate to severe tricuspid regurgitation. A CT angiogram was obtained. It was a suboptimal study but there was no evidence of large pulmonary embolus. It is most likely the methotrexate that is contributing to the pulmonary hypertension. The patient was instructed to stop her methotrexate and follow-up with rheumatology soon as possible. She will also follow-up with cardiology to help manage the pulmonary hypertension and valve disease. Physical Exam Vital Signs: Temp Pulse Resp BP Pulse Ox 98.5 F 65 16 103/60 98 03/03/19 03:28 03/03/19 07:00 03/03/19 03:28 03/03/19 03:28 03/03/19 03:28 Intake & Output 03/02/19 03/03/19 03/04/19 06:59 06:59 06:59 Intake Total 1999 1000 Balance 1999 1000 Weight 64.2 kg 68.6 kg General appearance: PRESENT: cooperative, mild distress, well-developed Head exam: PRESENT: atraumatic, normocephalic Eye exam: PRESENT: conjunctiva pink. ABSENT: scleral icterus Ear exam: PRESENT: normal external ear exam. ABSENT: bleeding, drainage Respiratory exam: PRESENT: rales - Faint rales bilaterally, symmetrical, unlabored. ABSENT: rhonchi, tachypnea, wheezes Cardiovascular exam: PRESENT: RRR, +S1, +S2, systolic murmur GI/Abdominal exam: PRESENT: normal bowel sounds, soft. ABSENT: distended, guarding, tenderness Extremities exam: ABSENT: joint swelling, pedal edema, tenderness Neurological exam: PRESENT: alert, awake, oriented to person, oriented to place, oriented to time, oriented to situation, CN II-XII grossly intact Psychiatric exam: PRESENT: anxious. ABSENT: agitated Focused psych exam: ABSENT: delusional, restlessness Results Laboratory Results: 03/01/19 07:28 03/03/19 03:47 03/03/19 03:47 Sodium 141.9 Potassium 3.9 Chloride 117 H Carbon Dioxide 20 L Anion Gap 5 BUN 8 Creatinine 0.54 Est GFR ( Amer) > 60 Glucose 83 Calcium 8.0 L 02/28/19 02/28/19 02/28/19 11:30 11:30 13:07 Creatine Kinase 66 CK-MB (CK-2) 0.50 Troponin I 0.090 0.095 02/28/19 03/01/19 03/01/19 18:36 01:02 07:28 Creatine Kinase CK-MB (CK-2) 0.49 < 0.22 < 0.22 Troponin I 0.091 0.090 0.089 Impressions: Carotid Doppler Study 02/28/19 00:00 IMPRESSION: NO HEMODYNAMICALLY SIGNIFICANT STENOSIS. Chest X-Ray 02/28/19 00:00 IMPRESSION: NO ACUTE RADIOGRAPHIC FINDING IN THE CHEST. Head MRI 02/28/19 00:00 IMPRESSION: NORMAL MRI OF THE BRAIN WITHOUT INTRAVENOUS GADOLINIUM CONTRAST. EVIDENCE OF ACUTE STROKE: NO. Head CT 02/28/19 14:48 IMPRESSION: NORMAL BRAIN CT WITHOUT CONTRAST. EVIDENCE OF ACUTE STROKE: NO. Chest/Abdomen CTA 03/02/19 17:00 IMPRESSION: Limited study due to suboptimal opacification of the pulmonary vessels. However, no saddle embolus is seen. Qualifiers - * PATIENT BEING DISCHARGED WITH ANY OF THE FOLLOWING DIAGNOSIS: No Acute Heart Failure - Is this a Heart Failure Patient?: No Plan Time Spent: Greater than 30 Minutes
[2019-03-03 13:18] VITALS: BP 103/60
--- NOTE | 2019-03-11 00:31 | DRAGON STRESS TEST REPORT ---
Intravenous Lexiscan Cardiolite stress test using single photon emmision computerized tomography. Date of procedure: 03/02/2019. Ordering Provider: Dr. Singh. Patient's status: In the Patient. Indication: Chest pain. Coronary risk factors: Age, and family history of coronary artery disease. Resting EKG: Sinus Rhythm. EKG within normal limits. The patient had no chest pain or discomfort, and there were no arrhythmias seen. Stress EKG: No changes of ischemia. Reason for termination: Protocol. Conclusions: Normal EKG and hemodynamic response to IV Lexiscan. Nuclear data: At rest the patient was given 11.96 millicuries of technetium 99m sestamibi injected intravenously. As per protocol rest non gated SPECT images were obtained. Subsequently the patient was given intravenous Lexiscan at a dose of 0.4 mg in 5 mL intravenously, followed by flush with normal saline. Subsequently the stress dose of 33.5 millicuries of technetium 99m sestamibi was injected intravenously. As per protocol stress gated images were obtained. Nuclear interpretation: Review of images showed that there is breast attenuation artifact. In spite of this all segments of the myocardium had normal perfusion at rest, and normal perfusion post stress with IV Lexiscan. All segments of the myocardium had normal motion, contraction, and thickening by gated study. T. I D. ratio was normal at 1.12. There is no transient ischemic dilatation of the left ventricle. Computer read rest, and stress left ventricular ejection fraction were 50 %, and 54 %, respectively. Visually both the stress and rest ejection fractions were normal, and greater than 55%. Conclusion: 1. There is no scintigraphic evidence of Lexiscan induced myocardial ischemia. 2. There is no scintigraphic evidence of myocardial infarction/scar. Recommendations: Aggressive risk factor modification, and treating the underlying co- morbidities. MTDD
== END 2019-03-03 13:30 | disposition home or self-care (01) ==
LOC: ER 10:48 → EH 16:50 → 5 19:49
PROVIDERS: ADMIT Family Medicine; ATTEND Family Medicine
DX: R42 Dizziness and giddiness (principal); H55.00 Unspecified nystagmus; R20.2 Paresthesia of skin; R20.0 Anesthesia of skin; M47.892 Other spondylosis, cervical region; M47.896 Other spondylosis, lumbar region; R07.89 Other chest pain; I27.20 Pulmonary hypertension, unspecified; E03.9 Hypothyroidism, unspecified; F32.9 Major depressive disorder, single episode, unspecified; F41.9 Anxiety disorder, unspecified; E78.5 Hyperlipidemia, unspecified; I10 Essential (primary) hypertension; I08.1 Rheumatic disorders of both mitral and tricuspid valves; R25.1 Tremor, unspecified; R47.81 Slurred speech; M06.9 Rheumatoid arthritis, unspecified; R53.83 Other fatigue; R25.3 Fasciculation; R53.1 Weakness; R06.09 Other forms of dyspnea; Z79.82 Long term (current) use of aspirin; Z79.899 Other long term (current) drug therapy; Z79.891 Long term (current) use of opiate analgesic; R79.89 Other specified abnormal findings of blood chemistry; Z82.49 Family history of ischemic heart disease and other diseases of the circulatory system
CPT/HCPCS: 93005 ×2; 99285; 36415 ×3; 84439; 82553 ×2; 82607; 82550; 82746; 83735; 84100; 84443; 85025 ×2; 85652; 85610; 85730; 80048; 80053 ×2; 84484 ×2; 84481; 83036; 93306; 93017; 93880; 70551; 71046; 78452; 70450; 71275; 93010 ×2; G0378 ×5; A9500; J2785; A9270 ×20; J1650 ×4; J7030 ×4; Q9969; J3490 ×2

== ENCOUNTER → 2020-02-15 | Outpatient (CLI) | payer MEDICARE, OTHER ==
--- NOTE | 2020-02-15 22:16 | XCELERA REPORT ---
[address] [address] Transthoracic Echocardiogram Report Name: LYNETTE DUNN Age: 69 yrs Gender: Female : 1950 Patient Status: Outpatient Patient Location: [facility] Study Date: 02/15/2020 12:13 PM History: PAH RA DVT Height: 63 in Weight: 180 lb BSA: 1.8 m2 Procedure: A complete two-dimensional transthoracic echocardiogram was performed (2D, M-mode, spectral and color flow Doppler). The study was technically difficult with many images being suboptimal in quality. Reason For Study: CHEST PAIN Previous Evaluation: A previous study was performed on 03/01/2019 LVEF 60%. History: PAH DVT Rheumatoid arthritis. Ordering Physician: ARTIE LÓPEZ Performed By: Nury Hampton Interpretation Summary The Ejection Fraction estimate is 50-55% Left ventricular systolic function is low normal. The right ventricle is normal in size and function. There is a mild amount of mitral regurgitation There is no aortic valve stenosis There is a trace amount of tricuspid regurgitation There is mild to moderate pulmonary hypertension by echo There is no pericardial effusion. MMode/2D Measurements & Calculations RVDd: 2.8 cm LVIDd: 5.5 cm FS: 28.6 % Ao root diam: 2.7 cm IVSd: 0.91 cm LVIDs: 3.9 cm EDV(Teich): 145.9 ml Ao root area: 5.7 cm2 LVPWd: 0.81 cm ESV(Teich): 66.3 ml EF(Teich): 54.6 % Doppler Measurements & Calculations MV E max sky: MV dec slope: Ao V2 max: LV V1 max P.2 cm/sec 585.9 cm/sec2 103.9 cm/sec 3.4 mmHg MV A max sky: MV dec time: 0.12 secAo max P.3 mmHgLV V1 max: 80.7 cm/sec 91.6 cm/sec MV E/A: 0.86 MR max sky: PA V2 max: TR max sky: 521.9 cm/sec 66.3 cm/sec 298.1 cm/sec MR max PG: PA max P.8 mmHg TR max P.9 mmHg 35.6 mmHg Left Ventricle The left ventricle is borderline dilated. There is normal left ventricular wall thickness. The Ejection Fraction estimate is 50-55%. Left ventricular systolic function is low normal. No regional wall motion abnormalities noted. Right Ventricle The right ventricle is normal in size and function. Atria The right atrium is normal. The left atrial size is normal. The interatrial septum is intact with no evidence for an atrial septal defect. There is no Doppler evidence for an interatrial shunt. Mitral Valve The mitral valve is grossly normal. There is no mitral valve stenosis. There is a mild amount of mitral regurgitation. The mitral regurgitant jet is eccentrically directed. Aortic Valve The aortic valve is normal in structure and function. The aortic valve is trileaflet. The aortic valve opens well. There is no aortic valve stenosis. No aortic regurgitation is present. Tricuspid Valve The tricuspid valve is normal in structure and function. There is no tricuspid stenosis. There is a trace amount of tricuspid regurgitation. There is mild to moderate pulmonary hypertension by echo. Right ventricular systolic pressure is estimated to be elevated at 40-50mmHg. Pulmonic Valve The pulmonic valve is not well visualized. There is a trace amount of pulmonic regurgitation. Great Vessels The aortic root is normal size. The inferior vena cava appeared normal and decreased < 50% with respiration (RAP 10-15 mmHg). Effusions There is no pericardial effusion. : ARTIE LÓPEZ Anil
== END ==
LOC: SP 12:32
PROVIDERS: ATTEND Internal Medicine
DX: I10 Essential (primary) hypertension (principal); R07.9 Chest pain, unspecified; Z79.01 Long term (current) use of anticoagulants
CPT/HCPCS: 93306

== ENCOUNTER 2020-03-18 10:48 | Emergency (ER) | payer MEDICARE, OTHER ==
--- NOTE | 2020-03-18 11:01 | ER Document Report ---
ED Medical Screen (RME) - General Chief Complaint: Abdominal Pain Stated Complaint: ABDOMINAL PAIN Time Seen by Provider: 03/18/20 10:57 Primary Care Provider: ARTIE LÓPEZ MD [Primary Care Provider] - Follow up as needed Mode of Arrival: Wheelchair Information source: Patient Notes: 69-year-old female presented to ED for upper abdominal pain more to the right. She states she has been having nausea and vomiting for 3 days with cramping. She states her pain is a 3 out of 5. States last bowel movement was this morning and it was soft. She states she only has medical history that is already in the computer. Does not smoke drink or use any illicit drugs. Patient is alert oriented respirations regular nonlabored speaking in full sentences. I have greeted and performed a rapid initial assessment of this patient. A comprehensive ED assessment and evaluation of the patient, analysis of test results and completion of medical decision making process will be conducted by an additional ED providers. TRAVEL OUTSIDE OF THE [place] IN LAST 30 DAYS: No - Related Data Allergies/Adverse Reactions: No Known Allergies Allergy (Verified 02/28/19 10:54) Past Medical History - Past Medical History Cardiac Medical History: Reports: Hx Hypercholesterolemia Neurological Medical History: Reports: Hx Migraine Endocrine Medical History: Reports: Hx Hypothyroidism Renal/ Medical History: Denies: Hx Peritoneal Dialysis GI Medical History: Reports: Hx Gastroesophageal Reflux Disease, Hx Colonoscopy, Hx Endoscopy Musculoskeltal Medical History: Reports None, Reports Hx Musculoskeletal Deformity, Reports Hx Musculoskeletal Trauma Psychiatric Medical History: Reports: Hx Anxiety, Hx Depression Past Surgical History: Reports: Hx Hysterectomy, Hx Orthopedic Surgery - R knee - Immunizations Immunizations up to date: No Hx Diphtheria, Pertussis, Tetanus Vaccination: - unknown Physical Exam - Vital signs Vitals: Temp Pulse Resp BP Pulse Ox 97.4 F 74 20 140/73 H 97 03/18/20 10:52 03/18/20 10:52 03/18/20 10:52 03/18/20 10:52 03/18/20 10:52 Course - Vital Signs Vital signs: Temp Pulse Resp BP Pulse Ox 97.4 F 74 20 140/73 H 97 03/18/20 10:52 03/18/20 10:52 03/18/20 10:52 03/18/20 10:52 03/18/20 10:52 Doctor's Discharge - Discharge Referrals: ARTIE LÓPEZ MD [Primary Care Provider] - Follow up as needed
--- NOTE | 2020-03-18 12:11 | RADIOLOGY REPORT (SQ) ---
EXAM DESCRIPTION: CHEST 2 VIEWS IMAGES COMPLETED DATE/TIME: 03/18/2020 11:45 am REASON FOR STUDY: Epigastric pain COMPARISON: 02/28/2019 EXAM PARAMETERS: NUMBER OF VIEWS: two views TECHNIQUE: Digital Frontal and Lateral radiographic views of the chest acquired. RADIATION DOSE: NA LIMITATIONS: none FINDINGS: LUNGS AND PLEURA: No opacities, masses or pneumothorax. No pleural effusion. MEDIASTINUM AND HILAR STRUCTURES: No masses or contour abnormalities. HEART AND VASCULAR STRUCTURES: Heart normal size. No evidence for failure. BONES: No acute findings. Stable mild anterior wedging of the midthoracic vertebral body. HARDWARE: None in the chest. OTHER: No other significant finding. IMPRESSION: NO ACUTE RADIOGRAPHIC FINDING IN THE CHEST. TECHNICAL DOCUMENTATION: JOB ID: [id number] 2010 [employer]- All Rights Reserved Reading location - IP/workstation name: [email or web address]
--- NOTE | 2020-03-18 12:13 | RADIOLOGY REPORT (SQ) ---
EXAM DESCRIPTION: U/S ABDOMEN LIMITED W/O DOP IMAGES COMPLETED DATE/TIME: 03/18/2020 11:46 am REASON FOR STUDY: Epigastric pain COMPARISON: None. TECHNIQUE: Dynamic and static grayscale images acquired of the abdomen and recorded on PACS. Additio nal selected color Doppler and spectral images recorded. LIMITATIONS: Some structures obscured by body habitus and bowel gas. FINDINGS: PANCREAS: Not well visualized due to overlying bowel gas. LIVER: No focal lesions. Increased echogenicity with decreased visualization of the portal triads. No intrahepatic ductal dilation. LIVER VASCULATURE: Normal directional flow of the main portal vein and hepatic veins. GALLBLADDER: No stones. Normal wall thickness. No pericholecystic fluid. ULTRASOUND-DETECTED PAULINO'S SIGN: Negative. INTRAHEPATIC DUCTS AND COMMON DUCT: CBD and intrahepatic ducts normal caliber. No filling defects. INFERIOR VENA CAVA: Normal flow. AORTA: No aneurysm. RIGHT KIDNEY: Normal size measuring 9 cm. Cyst in the interpolar region measuring 2.1 cm. . Normal echogenicity. No solid or suspicious masses. No hydronephrosis. No calcifications. PERITONEAL AND RIGHT PLEURAL SPACE: No ascites or effusions. OTHER: No other significant findings. IMPRESSION: Hepatic steatosis. Otherwise, unremarkable right upper quadrant ultrasound as visualized . TECHNICAL DOCUMENTATION: JOB ID: [id number] 2010 [employer]- All Rights Reserved Reading location - IP/workstation name: [email or web address]
[2020-03-18 12:48] LABS: ABSOLUTE LYMPHOCYTES (AUTO) 1.5 10^3/uL (0.5-4.7); ABSOLUTE MONOCYTES (AUTO) 0.5 10^3/uL (0.1-1.4); ABSOLUTE NEUT (AUTO) 4.2 10^3/uL (1.7-8.2); BASOPHILS % (AUTO) 0.3 % (0-2); EOSINOPHILS % (AUTO) 0.3 % (0-6); HEMATOCRIT 43.2 % (36.0-47.0); HEMOGLOBIN 14.3 g/dL (12.0-15.5); LYMPHOCYTES % (AUTO) 24.1 % (13-45); MEAN CORPUSCULAR HEMOGLOBIN 28.1 pg (27.0-33.4); MEAN CORPUSCULAR HGB CONC 33.1 g/dL (32.0-36.0); MEAN CORPUSCULAR VOLUME 85 fl (80-97); MONOCYTES % (AUTO) 8.7 % (3-13); PLATELET COUNT 234 10^3/uL (150-450); RED BLOOD COUNT 5.09 10^6/uL (3.72-5.28); RED CELL DISTRIBUTION WIDTH 13.8 % (11.5-14.0); SEGMENTED NEUTROPHILS % (AUTO) 66.6 % (42-78); TOTAL CELLS COUNTED % (AUTO) 100 %; WHITE BLOOD COUNT 6.3 10^3/uL (4.0-10.5)
[2020-03-18 12:50] LABS: APPEARANCE,URINE SLIGHTLY-CLOUDY; BILIRUBIN,URINE NEGATIVE (NEGATIVE); COLOR,URINE YELLOW; GLUCOSE, URINE NEGATIVE (NEGATIVE); KETONES,URINE 20 mg/dL (NEGATIVE); LEUKOCYTE ESTERASE,URINE MODERATE (NEGATIVE); NITRITE,URINE NEGATIVE (NEGATIVE); PROTEIN,URINE 30 mg/dL (NEGATIVE); URINE SPECIFIC GRAVITY 1.015; UROBILINOGEN,URINE NEGATIVE mg/dL (<2.0)
[2020-03-18 13:06] LABS: ALBUMIN 4.3 g/dL (3.5-5.0); ALKALINE PHOSPHATASE 71 U/L (38-126); ANION GAP 13 (5-19); ASPARTATE AMINO TRANSFERASE 41 U/L (14-36); BILIRUBIN,DIRECT 0.3 mg/dL (0.0-0.4); BILIRUBIN,TOTAL 0.7 mg/dL (0.2-1.3); BLOOD UREA NITROGEN 7 mg/dL (7-20); CALCIUM 8.8 mg/dL (8.4-10.2); CARBON DIOXIDE 21 mmol/L (22-30); CHLORIDE 108 mmol/L (98-107); GLUCOSE 114 mg/dL (75-110); POTASSIUM 3.4 mmol/L (3.6-5.0); TOTAL PROTEIN 7.1 g/dL (6.3-8.2)
[2020-03-18] MEDS ORDERED: LIDOCAINE 2% VISCOUS SOLN 15 ML UDCUP PO ONE (14:22)
[2020-03-18] MEDS ORDERED: METOCLOPRAMIDE HCL ORAL SOLN 10 MG/10 ML UDCUP PO ONE (14:22)
[2020-03-18] MEDS ORDERED: FAMOTIDINE INJ/PF 20 MG/2 ML SDV IV ONE ×2 (14:22→15:21)
[2020-03-18] MEDS ORDERED: MAG HYDROX/AL HYDROX/SIMETH SUSP 30 ML UDCUP PO ONE (14:22)
--- NOTE | 2020-03-18 14:28 | ER Document Report ---
ED General - General Chief Complaint: Abdominal Pain Stated Complaint: ABDOMINAL PAIN Time Seen by Provider: 03/18/20 10:57 Primary Care Provider: ARTIE LÓPEZ MD [ACTIVE STAFF] - Follow up as needed Mode of Arrival: Wheelchair Information source: Patient Notes: 69-year-old female coming in today with 3-1/2 weeks of epigastric pain and severe nausea coming off and on. Worse with smelling food or eating. No fevers or chills. No vomiting. No chest pain or shortness of breath TRAVEL OUTSIDE OF THE [place] IN LAST 30 DAYS: No - Related Data Allergies/Adverse Reactions: No Known Allergies Allergy (Verified 02/28/19 10:54) Past Medical History - General Information source: Patient - Social History Smoking Status: Never Smoker Family History: Reviewed & Not Pertinent, CAD - Past Medical History Cardiac Medical History: Reports: Hx Hypercholesterolemia Neurological Medical History: Reports: Hx Migraine Endocrine Medical History: Reports: Hx Hypothyroidism Renal/ Medical History: Denies: Hx Peritoneal Dialysis GI Medical History: Reports: Hx Gastroesophageal Reflux Disease, Hx Colonoscopy, Hx Endoscopy Musculoskeletal Medical History: Reports None, Reports Hx Arthritis, Reports Hx Musculoskeletal Deformity, Reports Hx Musculoskeletal Trauma Psychiatric Medical History: Reports: Hx Anxiety, Hx Depression Past Surgical History: Reports: Hx Hysterectomy, Hx Orthopedic Surgery - R knee - Immunizations Immunizations up to date: No Hx Diphtheria, Pertussis, Tetanus Vaccination: - unknown Review of Systems - Review of Systems Notes: Constitutional: No fevers. No chills. EENT: No eye redness. No eye pain. No ear pain. No sore throat. Cardiovascular: No chest pain. No palpitations. Respiratory: No cough. No shortness of breath. No respiratory distress. Gastrointestinal: +abdominal pain. Positive for nausea negative for vomiting and diarrhea Genitourinary: Atraumatic. No lesions. No pain. No discharge. Musculoskeletal: Atraumatic. No swelling. No deformities. Skin: No rash or lesions. Lymphatic: No swollen lymph nodes. Neurologic: No headache. No syncope. Psychiatric: No suicidal or homicidal ideation. Physical Exam - Vital signs Vitals: Temp Pulse Resp BP Pulse Ox 97.4 F 74 20 140/73 H 97 03/18/20 10:52 03/18/20 10:52 03/18/20 10:52 03/18/20 10:52 03/18/20 10:52 - Notes Notes: General: Well-developed, well-nourished. In no acute distress. Non-toxic appearing. Appears uncomfortable Cardiac: Well-perfused. Regular rate and rhythm. No murmurs, rubs, or gallops. Pulmonary: No respiratory distress. No cyanosis. Bilateral lung maza are clear to auscultation. Abdominal: Non-distended. Non-rigid. Bowels sounds are present in all four quadrants. No guarding or rebound. Tenderness to the epigastrium. HEENT: Head is atraumatic. Conjunctivae not reddened. No tearing. PERRL. EOMI. Orbits atraumatic. No periorbital swelling or erythema. Oropharynx is without erythema, swelling, or exudates. Neck: Supple. No adenopathy. No meningismus. Dermatologic: Warm with good turgor. No rash. Atraumatic. Chest: Atraumatic. No chest wall tenderness to palpation. Musculoskeletal: Moves all extremities well. No range of motion deficits. no muscular or joint tenderness. No paraspinal muscle tenderness. no midline spinal tenderness or step-off. Genitourinary: Examination deferred Neurologic: No gross neurologic deficits. Psychiatric: Normal mood. Course - Re-evaluation Re-evalutation: 03/18/20 14:27 So far work-up looks benign. Ultrasound does not show any abnormalities of the gallbladder. No elevation of lipase. Cardiac enzymes at baseline are negative. Chest x-ray negative. Going to try a GI cocktail to see if this improves her symptoms. She may have a dysfunctional gallbladder. 03/18/20 15:22 Nurse notified me that the patient did not tolerate the GI cocktail and Pepcid by mouth. Will order an IV with some normal saline bolus with IV Reglan and Pepcid. 03/18/20 16:13 Rechecked the patient. She has just received her IV medications and the fluids are running. She looks a bit less distressed on this visit. I told him that her work-up is otherwise unremarkable. She will need GI follow-up for sure. I goal for her , and she is in agreement with this, is to help with her nausea help with her discomfort and discharge her home with the appropriate medicines to control her symptoms until such a time she can see the gastrointestinal doc tor as an outpatient. 03/18/20 16:58 Patient admits that she still not feeling stellar but she is able to tolerate sips of water without throwing up. We will put her on a prescription for Pepcid twice a day for a week and encouraged her to continue taking her chronic acid reflux medication. We will also give her a prescription for Reglan for nausea. She is to follow-up with GI as scheduled. In the meantime if things get worse she is instructed to return here to be reassessed. - Vital Signs Vital signs: Temp Pulse Resp BP Pulse Ox 97.7 F 69 18 115/66 100 03/18/20 13:55 03/18/20 13:55 03/18/20 13:55 03/18/20 13:55 03/18/20 13:55 - Laboratory Result Diagrams: 03/18/20 12:05 03/18/20 12:05 Laboratory results interpreted by me: 03/18/20 03/18/20 12:05 12:05 Potassium 3.4 L Chloride 108 H Carbon Dioxide 21 L Glucose 114 H AST 41 H Urine Protein 30 H Urine Ketones 20 H Ur Leukocyte Esterase MODERATE H - Diagnostic Test Radiology reviewed: Reports reviewed - EKG Interpretation by Me EKG shows normal: Sinus rhythm Rate: Normal Rhythm: NSR Additional EKG results interpreted by me: 03/18/20 14:[address] elevations or depressions Discharge - Discharge Clinical Impression: Epigastric pain, Nausea Condition: Good Disposition: HOME, SELF-CARE Instructions: Abdominal Pain ([facility]), Antinausea Medication ([facility]), Reglan ([facility]) Additional Instructions: Please proceed with your plan to see a gastrointestinal specialist. Reglan 5 mg every 6 hours as needed for nausea. Pepcid twice a day for the next week in addition to the other medication that you are taking for acid reflux. If your symptoms suddenly get worse or if you are having new or concerning symptoms you are always welcome to return to the emergency department to be reassessed. Prescriptions: Metoclopramide HCl [Reglan] 5 mg PO Q6HP PRN #15 tablet PRN Reason: Famotidine [Pepcid 20 mg Tablet] 20 mg PO BID 7 Days #14 tablet Referrals: ARTIE LÓPEZ MD [ACTIVE STAFF] - Follow up as needed
[2020-03-18] MEDS ORDERED: FAMOTIDINE 20 MG TABLET PO ONE (14:52)
[2020-03-18] MEDS ORDERED: METOCLOPRAMIDE HCL INJ/PF 10 MG/2 ML SDV IV ONE (15:21)
[2020-03-18] MEDS ORDERED: NORMAL SALINE 1000 ML 1,000 ML IV ONE (15:21)
[2020-03-18 17:43] VITALS: BP 122/71
== END 2020-03-18 17:30 | disposition home or self-care (01) ==
LOC: ER 10:48
DX: R10.13 Epigastric pain (principal); R11.0 Nausea
CPT/HCPCS: 99285; 96361; 96374; 96375; 36415; 87086; 83690; 85025; 80053; 81001; 84484; 71046; 76705; A9270 ×3; J3490; J2765; J7030; S0028